=== PATIENT | female | born 1930 | race Caucasian/White ===

== ENCOUNTER → 2016-08-16 | Outpatient (CLI) | payer BC, MEDICARE ==
[2016-08-16 10:51] LABS: ALT 33 U/L (9-52); AST 23 U/L (14-36); Cholesterol 177 mg/dL (<200); Creatine Kinase 28 U/L (30-135); HDL Cholesterol 45 mg/dL (40-60); Triglycerides 311 mg/dL (<150)
== END | disposition home or self-care (01) ==
LOC: LABWHC1 10:11
PROVIDERS: ATTEND Internal Medicine Cardiovascular Disease
DX: E78.2 Mixed hyperlipidemia (principal)
CPT/HCPCS: 36415; 80061; 82550; 84450; 84460

== ENCOUNTER → 2017-02-21 | Outpatient (CLI) | payer MEDICARE ==
[2017-02-21 10:08] LABS: CH 28.2; CHCM 31.3; HCT 38.5 % (34.0-46.0); HDW 2.65; HGB 11.7 gm/dL (11.4-16.0); Hypochromasia Slight; MCH 27.4 pg (25.0-35.0); MCHC 30.3 g/dL (31.0-37.0); MCV 90.7 fL (80.0-100.0); RBC 4.25 m/uL (3.80-5.40); RDW 14.9 % (11.5-15.5)
[2017-02-21 10:31] LABS: Potassium 4.7 mmol/L (3.5-5.1)
== END | disposition home or self-care (01) ==
LOC: LABWHC1 09:24
PROVIDERS: ATTEND Internal Medicine Cardiovascular Disease
DX: E78.2 Mixed hyperlipidemia (principal)
CPT/HCPCS: 36415; 80051; 82565; 84443; 84520; 85027

== ENCOUNTER → 2018-09-25 | Outpatient (CLI) | payer MEDICARE ==
--- NOTE | 2018-09-25 12:44 | XR ---
Right foot HISTORY: Chronic gout 2 views of the right foot No comparisons There is arthropathy at the metatarsophalangeal joint of the first digit which some minimal marginal erosion, cystic change present within the distal first metatarsal. Alignment is maintained, joint spa missael reduced. Extensive arthropathy changes present at the tarsometatarsal joints of the second throug h fourth digits, lesser extent first digit with hypertrophic change, joint space loss, arthropathy al so noted at the intertarsal joint medially. Alignment is maintained. Bone mineralization overall is r educed. No fracture or dislocation. There is soft tissue swelling. Vascular calcifications are presen t. There is a plantar calcaneal spur. IMPRESSION: Findings compatible with patient's history of gout.
== END ==
LOC: RADXRMAIN 11:06
PROVIDERS: ATTEND Family Medicine
DX: M1A.9XX1 Chronic gout, unspecified, with tophus (tophi) (principal)

== ENCOUNTER → 2018-10-01 | Outpatient (CLI) | payer MEDICARE ==
--- NOTE | 2018-10-01 10:08 | US ---
Exam: Ultrasound venous Doppler duplex lower extremity bilateral, LOWER EXTREMITY VENOUS INSUFFICIENC Y TECHNIQUE: Duplex ultrasound examination of the bilateral lower extremities. History: 87-year-old female with right leg pain,Pt having bilateral leg pain, non-healing wound rig ht great toe SIDE PERFORMED: Bilateral FINDINGS: 1) Color flow is present and patency is documented in the following vessels. No DVT or SVT is noted . EIV Common Femoral Vein Deep Femoral Vein Femoral Vein Popliteal Vein Proximal Calf Veins Greater Saph Vein Upper Small Saph Vein 2) There is venous reflux noted at the following venous levels: No reflux noted bilaterally IMPRESSION: 1. No evidence for DVT within the bilateral lower extremities imaged from the groin to the upper calv es. 2. No venous reflux identified.
--- NOTE | 2018-10-03 12:12 | P.ARTDOP ---
Arterial Doppler LOWER EXTREMITY ARTERIAL DOPPLER: DATE OF SERVICE: 10/01/2018 Reason for study: Right great toe ulcer. Doppler waveforms: Multiphasic bilaterally throughout but blunted. Pulse volume recording: []. Pressure gradients: None. Ankle-brachial indices: Cannot occlude. Toe pressures: 137 on the right, 139 on the left Impression: Normal flow patterns bilaterally. Nonocclusive will ankles suggests calcific wall disease which is not hemodynamically significant..
== END | disposition home or self-care (01) ==
LOC: RADUSWWP 09:07
PROVIDERS: ATTEND Family Medicine
DX: M79.604 Pain in right leg (principal)
CPT/HCPCS: 93922; 93970

== ENCOUNTER → 2019-08-28 | Outpatient (CLI) | payer MEDICARE ==
[2019-08-28 17:32] LABS: Chol/HDL Ratio 3.51; LDL Cholesterol,Calculated 71.8 mg/dL (0.0-131.0); VLDL Calculation 51.2 mg/dL (5.00-40.00)
== END | disposition home or self-care (01) ==
LOC: LABWHC1 10:02
PROVIDERS: ATTEND Internal Medicine Cardiovascular Disease
DX: E78.2 Mixed hyperlipidemia (principal)
CPT/HCPCS: 36415; 80061; 84450; 84460

== ENCOUNTER → 2021-07-22 | Outpatient (CLI) | payer MEDICARE | END | disposition home or self-care (01) | LOC: LABWHC1 12:25 | PROVIDERS: ATTEND Family Medicine | DX: U07.1 COVID-19 (principal) | CPT/HCPCS: U0003; C9803; U0005 ==

== ENCOUNTER → 2021-10-12 | Outpatient (CLI) | payer MEDICARE ==
[2021-10-12 14:45] LABS: ALT 17 U/L (8-44); AST 28 U/L (13-35); Chol/HDL Ratio 2.76 Ratio; LDL Cholesterol,Calculated 76.3 mg/dL (0.0-131.0)
== END | disposition home or self-care (01) ==
LOC: LABWHC1 09:46
PROVIDERS: ATTEND Internal Medicine Cardiovascular Disease
DX: E78.2 Mixed hyperlipidemia (principal)
CPT/HCPCS: 36415; 80061; 84450; 84460

== ENCOUNTER 2021-10-18 20:01 | Inpatient (IN) | payer MEDICARE ==
[2021-10-18] MEDS ORDERED: SODIUM CHLORIDE 0.9% 1,000 ML IV ONE (20:42)
[2021-10-18 21:13] LABS: Albumin 3.1 g/dL (3.5-5.0); Calcium 9.6 mg/dL (8.4-10.2); Potassium 3.3 mmol/L (3.5-5.1); Total Protein 5.3 g/dL (6.3-8.2)
--- NOTE | 2021-10-18 21:27 | XR ---
EXAMINATION TYPE: XR chest 2V DATE OF EXAM: 10/18/2021 9:02 PM COMPARISON:Chest radiographs from 10/15/2015 TECHNIQUE: XR chest 2V Frontal and lateral views of the chest. CLINICAL INDICATION:Female, 89 years old with history of altered mental status; FINDINGS: Lungs/Pleura: There is no evidence of pleural effusion, focal consolidation, or pneumothorax. Pulmonary vascularity: Pulmonary vascular congestion. Heart/mediastinum: Cardiomediastinal silhouette is enlarged and stable. Musculoskeletal: No acute osseous pathology. IMPRESSION: Cardiomegaly and mild pulmonary vascular congestion. Correlate with BNP for congestive heart failure.
[2021-10-18 21:29] LABS: Partial Thromboplastin Time 23.4 sec (22.0-30.0)
--- NOTE | 2021-10-18 21:39 | CT ---
EXAMINATION TYPE: CT brain wo con CT DLP: 1126.4 mGycm, Automated exposure control for dose reduction was used. DATE OF EXAM: 10/18/2021 9:20 PM COMPARISON: None. CLINICAL INDICATION:Female, 89 years old with history of Altered mental status. TECHNIQUE: Brain: Multiple axial CT images of the brain were obtained without IV contrast. FINDINGS: Brain: Extra-axial spaces: No abnormal extra-axial fluid collections. Ventricular system: Dilatation in proportion to cerebral atrophy. Cerebral parenchyma: No acute intraparenchymal hemorrhage or mass effect. The ross-white junction is well differentiated. Scattered hypoattenuating areas are seen within the white matter. Cerebellum: Unremarkable. Mass effect: No evidence of midline shift. Intracranial vasculature: Atherosclerotic calcifications of the intracranial vessels. Soft tissues: Normal. Calvarium/osseous structures: No depressed skull fracture. Paranasal sinuses and mastoid air cells: Mild scattered paranasal sinus disease. Visualized orbits: Bilateral aphakia IMPRESSION: 1. No acute intracranial process. 2. Nonspecific white matter changes, likely secondary to chronic small vessel ischemic disease.
[2021-10-18 21:51] LABS: Lactic Acid, Venous 2.7 mmol/L (0.7-2.0)
[2021-10-18 21:56] LABS: HCT 38.5 % (34.0-46.0); HGB 12.2 gm/dL (11.4-16.0); Hypochromasia Slight; MCH 30.4 pg (25.0-35.0); MCHC 31.7 g/dL (31.0-37.0); MCV 95.7 fL (80.0-100.0); Mean Platelet Volume 8.8; Platelet Count 132 k/uL (150-450); RBC 4.02 m/uL (3.80-5.40); RDW 15.9 % (11.5-15.5); WBC 12.8 k/uL (3.8-10.6)
[2021-10-18 23:01] LABS: Appearance,Urine Turbid (Clear); Bacteria,Urine Occasional /hpf; Bilirubin,Urine Negative (Negative); Blood,Urine Large (Negative); Glucose,Urine (UA) Negative (Negative); Ketones,Urine Trace (Negative); Leukocyte Esterase,Urine Moderate (Negative); Nitrite,Urine Negative (Negative); PH, Urine 7.5 (5.0-8.0); Protein,Urine 3+ (Negative); RBC,Urine >182 /hpf (0-5); Specific Gravity,Urine 1.022 (1.001-1.035); Squamous Epithelial Cell,Urine 2 /hpf (0-4); Urobilinogen,Urine <2.0 mg/dL (<2.0); WBC,Urine 80 /hpf (0-5)
[2021-10-18 23:13] LABS: Amphetamine Screen,Urine Not Detected (NotDetected); Barbiturate Screen,Urine Not Detected (NotDetected); Benzodiazepines Screen,Urine Not Detected (NotDetected); Cocaine Screen,Urine Not Detected (NotDetected); Color,Urine Brown; Methadone Screen, Urine Not Detected (NotDetected); Opiate Screen,Urine Not Detected (NotDetected); Oxycodone Screen, Urine Not Detected (NotDetected); Phencyclidine Screen,Urine Not Detected (NotDetected); Tricyclic Antidepressant,Urine Not Detected (NotDetected); Urn Cannabinoid Scrn Not Detected (NotDetected)
[2021-10-18] MEDS ORDERED: SODIUM CHLORIDE 0.9% 1,000 ML IV STA (23:21)
[2021-10-18] MEDS ORDERED: CEFEPIME 2 GM in SODIUM CHLORIDE 0.9% 100 ML IVPB ONE (23:30)
[2021-10-18] MEDS ORDERED: NALOXONE 0.4 MG/ML 1 ML VIAL IV PRN (23:38)
[2021-10-18] MEDS ORDERED: ONDANSETRON 4 MG/2 ML VIAL IVP PRN (23:38)
[2021-10-18] MEDS ORDERED: POTASSIUM CHLORIDE ER 20 MEQ TAB.ER PO STA (23:50)
--- NOTE | 2021-10-18 23:50 | ED ---
General Adult HPI - General Chief complaint: Altered Mental Status Stated complaint: Weakness Time Seen by Provider: 10/18/21 20:15 Source: patient, EMS, RN notes reviewed, old records reviewed Mode of arrival: EMS - History of Present Illness Initial comments: Patient is a 89-year-old female with past medical history remarkable for atrial fibrillation on, CAD, cancer, dementia, hypertension, thyroid disorder who presents emergency Department complaining of fatigue, as well as concern for UTI. For the last one day, patient has had reduced oral intake, has been more tired, there is concern for possible UTI per patient's family members who present with the patient and assist with history taking. Patient provides limited history. Hs no acute complaints at this time. Patient has difficult time and waiting at home. She is chronically weak in bilateral lower extremitie s. She is a current baseline mental status, just slightly slower to responding to questions per family. She denies chest pain, shortness breath, abdominal pain. Presents for further evaluation. Per patient's family members, she is DO NOT RESUSCITATE DO NOT INTUBATE. Confirm the patient's daughters phone number, who is her power of logistics clerk and who is the primary otr truck driver for the patient. Patient does have an advanced directive. - Related Data Home Medications Medication Instructions Recorded Confirmed Furosemide [Lasix] 40 mg PO DAILY 03/01/14 10/18/21 Losartan Potassium [Cozaar] 100 mg PO DAILY 03/01/14 10/18/21 Pravastatin Sodium [Pravachol] 80 mg PO HS 03/01/14 10/18/21 Apixaban [Eliquis] 2.5 mg PO BID 09/20/18 10/18/21 Calcium Carbonate [Calcium] 1,200 mg PO DAILY 09/20/18 10/18/21 allopurinoL [Zyloprim] 100 mg PO HS 09/20/18 10/18/21 Acetaminophen [Tylenol Arthritis] 1,300 mg PO BID 10/18/21 10/18/21 Atenolol [Tenormin] 50 mg PO BID 10/18/21 10/18/21 Cholecalciferol [Vitamin D3 (25 50 mcg PO DAILY 10/18/21 10/18/21 Mcg = 1000 Iu)] Donepezil [Aricept] 10 mg PO HS 10/18/21 10/18/21 Fexofenadine HCl [Dionna Allergy] 180 mg PO DAILY 10/18/21 10/18/21 Levothyroxine Sodium [Synthroid] 175 mcg PO DAILY 10/18/21 10/18/21 Memantine [Namenda] 10 mg PO BID 10/18/21 10/18/21 Multivitamin [Multivitamins Adult 2 tab PO DAILY 10/18/21 10/18/21 Gummies] Allergies Allergy/AdvReac Type Severity Reaction Status Date / Time hydrocodone bitartrate Allergy Unknown Verified 10/18/21 21:34 [From Lortab] lisinopril Allergy Swelling Verified 10/18/21 21:34 sulfamethoxazole Allergy Unknown Verified 10/18/21 21:34 [From Septra] trimethoprim [From Septra] Allergy Unknown Verified 10/18/21 21:34 Review of Systems ROS Statement: Those systems with pertinent positive or pertinent negative responses have been documented in the HPI. Review of Systems: CONST: Denies fever EYES: Denies blurry vision ENT: Denies nasal congestion C/V: Denies Chest pain RESP: Denies shortness of breath GI: Denies abdominal pain : Denies dysuria SKIN: Denies rash. MSK: Denies joint pain. NEURO: Denies headache ROS Other: All systems not noted in ROS Statement are negative. Past Medical History Past Medical History: Atrial Fibrillation, Coronary Artery Disease (CAD), Cancer, Dementia, Hyperlipidemia, Hypertension, Osteoarthritis (OA), Thyroid Disorder, Vascular Disorder Additional Past Medical History / Comment(s): Hiatal hernia, degenerative disc and spinal stenosis, low back pain, tinnitits bilaterally on occasion, TANGIR[place] with new hearing aides, sinus problems, frequent urination, poor circulation, caricosities bilaterally, cervical cancer with hysterectomy, hypothryroidism. History of Any Multi-Drug Resistant Organisms: None Reported Past Surgical History: Appendectomy, Bowel Resection, Cholecystectomy, Hysterectomy Additional Past Surgical History / Comment(s): Numerous pain procedures for back pain, partial thryoidectomy, sinus surgery, L and R cataract removal with lens implants, possible incisional hernia repair, ventral hernia repair, D & C, colonoscopy. Past Anesthesia/Blood Transfusion Reactions: No Reported Reaction Additional Past Anesthesia/Blood Transfusion Reaction / Comment(s): Pt has never recieved blood. Past Psychological History: No Psychological Hx Reported Smoking Status: Never smoker Past Alcohol Use History: None Reported Past Drug Use History: None Reported - Past Family History Father Family Medical History: Coronary Artery Disease (CAD) Additional Family Medical History / Comment(s): Father of heart problem at age 85 yrs. Mother Family Medical History: Diabetes Mellitus Additional Family Medical History / Comment(s): Mother at age 83yrs. She had an amputation of her leg. General Exam - General Exam Comments Initial Comments: General: Appears in no acute distress. HEAD: Normal with no signs of head trauma. EYES: PERRLA, EOMI, conjunctiva normal, no discharge. ENT: Hearing grossly intact, normal oropharynx. Dry oropharynx. RESPIRATORY: Clear breath sounds bilaterally. No wheezes, rales, or rhonchi. C/V: Regular rate and rhythm. S1 and S2 auscultated, no edema, peripheral pulses 2+ and intact throughout ABD: Abd is soft, nontender, nondistended EXT: Normal range of motion, no obvious deformity SKIN: No rashes or lesions observed on exposed skin. NEURO: Alert and oriented 2-3, which is her baseline per family. NIH is 0. GCS 15. No acute focal sensory or strength deficits. Chronically weak in bilateral lower extremities. Course Vital Signs 10/18/21 20:04 Temperature 97.5 F L Pulse Rate 72 Respiratory 16 Rate Blood Pressure 132/60 O2 Sat by Pulse 98 Oximetry Medical Decision Making - Medical Decision Making Based on the patient's presentation physical exam, she presents for fatigue and concern for UTI. We will obtain a broad altered mental status workup for the patient. Family members are in agreement with this plan. CT brain as well as infectious labs including cardiac labs will be obtained. She'll be started on a 1 L fluid bolus. Vital signs are within normal limits and stable at this time. Family lives in agreement with this plan. She is DNR/DNI. EKG shows no signs of acute ischemia. Chest x-ray reveals no acute infectious process. Head CT shows no acute intracranial process. Laboratory studies are remarkable for mild leukocytosis of 12.8. Patient is a mild hypokalemia at 3.3 which is replenished. Patient has an AK I with creatinine of 1.67 and BUN of 31. Lactic acid is slightly elevated secondary to dehydration, to 2.7. Troponin is indeterminate at 0.029 which is likely secondary to her AK eye. Urinalysis is remarkable for a UTI, is distributed in appearance with 3+ protein, trace ketones, blood, leukocytes, as well as bacteria present. On reevaluation, vital signs remain within normal limits and unchanged. Discussed with the patient's family members as well as the patient that I believe she is having UTI and is dehydrated. Like to admitted to the hospital this time. There were no agreement this plan. Patient be started on cefepime based on her previous UTIs from a few Months ago. We'll continue IV fluids at this time. I spoke with the admitting physician, Dr. Denny, who accepted the patient. Patient was therefore admitted in stable condition for further management to observation telemetry. - Lab Data Result diagrams: 10/18/21 20:50 10/18/21 20:50 Lab Results 10/18/21 10/18/21 10/18/21 Range/Units 20:50 20:50 20:50 WBC 12.8 H (3.8-10.6) k/uL RBC 4.02 (3.80-5.40) m/uL Hgb 12.2 (11.4-16.0) gm/dL Hct 38.5 (34.0-46.0) % MCV 95.7 (80.0-100.0) fL MCH 30.4 (25.0-35.0) pg MCHC 31.7 (31.0-37.0) g/dL RDW 15.9 H (11.5-15.5) % Plt Count 132 L (150-450) k/uL MPV 8.8 Hypochromasia Slight PT 11.0 (9.0-12.0) sec INR 1.0 (<1.2) APTT 23.4 (22.0-30.0) sec Sodium 139 (137-145) mmol/L Potassium 3.3 L (3.5-5.1) mmol/L Chloride 102 (98-107) mmol/L Carbon Dioxide 30 (22-30) mmol/L Anion Gap 7 mmol/L BUN 31 H (7-17) mg/dL Creatinine 1.67 H (0.52-1.04) mg/dL Est GFR (CKD-EPI)AfAm 31 (>60 ml/min/1.73 sqM) Est GFR (CKD-EPI)NonAf 27 (>60 ml/min/1.73 sqM) Glucose 174 H (74-99) mg/dL Plasma Lactic Acid Karlo (0.7-2.0) mmol/L Calcium 9.6 (8.4-10.2) mg/dL Total Bilirubin 1.0 (0.2-1.3) mg/dL AST 52 H (14-36) U/L ALT 22 (4-34) U/L Alkaline Phosphatase 82 (38-126) U/L Ammonia (<30) umol/L Troponin I (0.000-0.034) ng/mL Total Protein 5.3 L (6.3-8.2) g/dL Albumin 3.1 L (3.5-5.0) g/dL Urine Color Urine Appearance (Clear) Urine pH (5.0-8.0) Ur Specific [place] (1.001-1.035) Urine Protein (Negative) Urine Glucose (UA) (Negative) Urine Ketones (Negative) Urine Blood (Negative) Urine Nitrite (Negative) Urine Bilirubin (Negative) Urine Urobilinogen (<2.0) mg/dL Ur Leukocyte Esterase (Negative) Urine RBC (0-5) /hpf Urine WBC (0-5) /hpf Urine WBC Clumps (None) /hpf Ur Squamous Epith Cells (0-4) /hpf Urine Bacteria (None) /hpf Urine Opiates Screen (NotDetected) Ur Oxycodone Screen (NotDetected) Urine Methadone Screen (NotDetected) Ur Propoxyphene Screen (NotDetected) Ur Barbiturates Screen (NotDetected) U Tricyclic Antidepress (NotDetected) Ur Phencyclidine Scrn (NotDetected) Ur Amphetamines Screen (NotDetected) U Methamphetamines Scrn (NotDetected) U Benzodiazepines Scrn (NotDetected) Urine Cocaine Screen (NotDetected) U Marijuana (THC) Screen (NotDetected) 10/18/21 10/18/21 10/18/21 Range/Units 20:50 21:27 21:54 WBC (3.8-10.6) k/uL RBC (3.80-5.40) m/uL Hgb (11.4-16.0) gm/dL Hct (34.0-46.0) % MCV (80.0-100.0) fL MCH (25.0-35.0) pg MCHC (31.0-37.0) g/dL RDW (11.5-15.5) % Plt Count (150-450) k/uL MPV Hypochromasia PT (9.0-12.0) sec INR (<1.2) APTT (22.0-30.0) sec Sodium (137-145) mmol/L Potassium (3.5-5.1) mmol/L Chloride (98-107) mmol/L Carbon Dioxide (22-30) mmol/L Anion Gap mmol/L BUN (7-17) mg/dL Creatinine (0.52-1.04) mg/dL Est GFR (CKD-EPI)AfAm (>60 ml/min/1.73 sqM) Est GFR (CKD-EPI)NonAf (>60 ml/min/1.73 sqM) Glucose (74-99) mg/dL Plasma Lactic Acid Karlo 2.7 H* (0.7-2.0) mmol/L Calcium (8.4-10.2) mg/dL Total Bilirubin (0.2-1.3) mg/dL AST (14-36) U/L ALT (4-34) U/L Alkaline Phosphatase (38-126) U/L Ammonia <9 (<30) umol/L Troponin I 0.029 (0.000-0.034) ng/mL Total Protein (6.3-8.2) g/dL Albumin (3.5-5.0) g/dL Urine Color Brown Urine Appearance Turbid H (Clear) Urine pH 7.5 (5.0-8.0) Ur Specific [place] 1.022 (1.001-1.035) Urine Protein 3+ H (Negative) Urine Glucose (UA) Negative (Negative) Urine Ketones Trace H (Negative) Urine Blood Large H (Negative) Urine Nitrite Negative (Negative) Urine Bilirubin Negative (Negative) Urine Urobilinogen <2.0 (<2.0) mg/dL Ur Leukocyte Esterase Moderate H (Negative) Urine RBC >182 H (0-5) /hpf Urine WBC 80 H (0-5) /hpf Urine WBC Clumps Many H (None) /hpf Ur Squamous Epith Cells 2 (0-4) /hpf Urine Bacteria Occasional H (None) /hpf Urine Opiates Screen Not Detected (NotDetected) Ur Oxycodone Screen Not Detected (NotDetected) Urine Methadone Screen Not Detected (NotDetected) Ur Propoxyphene Screen Not Detected (NotDetected) Ur Barbiturates Screen Not Detected (NotDetected) U Tricyclic Antidepress Not Detected (NotDetected) Ur Phencyclidine Scrn Not Detected (NotDetected) Ur Amphetamines Screen Not Detected (NotDetected) U Methamphetamines Scrn Not Detected (NotDetected) U Benzodiazepines Scrn Not Detected (NotDetected) Urine Cocaine Screen Not Detected (NotDetected) U Marijuana (THC) Screen Not Detected (NotDetected) - EKG Data -: EKG Interpreted by Me EKG Comments: 12-lead Electrocardiogram Interpretation Note EKG was reviewed and interpreted by myself. 12-lead ECG performed at 2016 is interpreted by me as revealing normal sinus rhythm at a rate of 77 beats per minute. [place] is normal. [place] interval is 229 ms, QRS durations 120 ms, QTc is 515 ms.. There were no ST or T wave abnormalities to suggest myocardial ischemia or injury. R-wave progression across the precordium was delayed.. By my interpretation this EKG is non-diagnostic for acute ischemia. Shows first- degree AV block. Prolonged QTc. Disposition Clinical Impression: Dehydration, UTI (urinary tract infection), Weakness, Hypokalemia, First degree AV block Disposition: ADMITTED IP TO THIS [facility] Condition: Stable Referrals: Mp Denny DO [Primary Care Provider] - 1-2 days
[2021-10-19 00:11] LABS: Band Neutrophils % 51 %; Lymphocytes # (M) 0.38 k/uL (1.0-4.8); Monocytes # (M) 0.13 k/uL (0-1.0); Neutrophils % (M) 46 %; Nucleated Red Blood Cells 0 /100 WBC (0-0); Total Cells Counted 200
[2021-10-19 00:13] LABS: Toxic Vacuolation Present
[2021-10-19 03:02] LABS: HGB 12.4 gm/dL (11.4-16.0); Hypochromasia Moderate; MCH 30.3 pg (25.0-35.0); MCV 97.7 fL (80.0-100.0); Mean Platelet Volume 8.5; Platelet Count 104 k/uL (150-450); RBC 4.09 m/uL (3.80-5.40); RDW 15.6 % (11.5-15.5); WBC 9.7 k/uL (3.8-10.6)
[2021-10-19 03:13] LABS: Albumin 3.5 g/dL (3.5-5.0); Calcium 9.7 mg/dL (8.4-10.2); Total Bilirubin 1.6 mg/dL (0.2-1.3); Total Protein 5.8 g/dL (6.3-8.2)
[2021-10-19 04:45] LABS: Band Neutrophils % 41 %; Lymphocytes # (M) 0.58 k/uL (1.0-4.8); Neutrophils % (M) 53 %; Nucleated Red Blood Cells 0 /100 WBC (0-0); Total Cells Counted 100
[2021-10-19 04:48] LABS: Toxic Vacuolation Present
[2021-10-19 04:49] LABS: Anisocytosis (M) Present
[2021-10-19] MEDS: LEVOTHYROXINE 88 MCG TAB PO SCH (06:24)
[2021-10-19] MEDS: MEMANTINE 10 MG TAB PO SCH ×2 (07:46→21:11)
[2021-10-19] MEDS: APIXABAN 2.5 MG TABLET PO SCH ×2 (07:46→21:11)
[2021-10-19] MEDS: LOSARTAN 50 MG TAB PO SCH (07:46)
[2021-10-19] MEDS: atenoloL 50 MG TAB PO SCH ×2 (07:47→21:11)
[2021-10-19] MEDS: LORATADINE 10 MG TAB PO SCH (07:47)
[2021-10-19] MEDS: CALCIUM CARBONATE 500 MG CHEWABLE PO SCH (07:47)
[2021-10-19] MEDS ORDERED: CEFEPIME 2 GM in SODIUM CHLORIDE 0.9% 100 ML IVPB SCH ×3 (08:00)
[2021-10-19] MEDS ORDERED: FUROSEMIDE 40 MG TAB PO SCH (09:00)
[2021-10-19] MEDS: CEFEPIME 1 GM in SODIUM CHLORIDE 0.9% 50 ML IVPB SCH (21:08)
[2021-10-19] MEDS: allopurinoL 100 MG TAB PO SCH (21:11)
[2021-10-19] MEDS: PRAVASTATIN SODIUM 80 MG TAB PO SCH (21:11)
[2021-10-20] MEDS: LEVOTHYROXINE 88 MCG TAB PO SCH (05:46)
[2021-10-20] MEDS: LOSARTAN 50 MG TAB PO SCH (08:42)
[2021-10-20] MEDS: CEFEPIME 1 GM in SODIUM CHLORIDE 0.9% 50 ML IVPB SCH ×2 (08:42→20:55)
[2021-10-20] MEDS: MEMANTINE 10 MG TAB PO SCH ×2 (08:42→20:56)
[2021-10-20] MEDS: APIXABAN 2.5 MG TABLET PO SCH ×2 (08:42→20:56)
[2021-10-20] MEDS: atenoloL 50 MG TAB PO SCH ×2 (08:42→20:56)
[2021-10-20] MEDS: LORATADINE 10 MG TAB PO SCH (08:42)
[2021-10-20] MEDS: CALCIUM CARBONATE 500 MG CHEWABLE PO SCH (08:42)
[2021-10-20] MEDS: FUROSEMIDE 40 MG TAB PO SCH ×2 (08:43→15:11)
[2021-10-20] MEDS: SODIUM CHLORIDE 0.9% 1,000 ML IV SCH (08:43)
--- NOTE | 2021-10-20 13:51 | P.PN ---
Progress Note - Text Progress Note Date: 10/20/21 At discharge patient will require a hospital bed secondary to dementia, obesity, and arthritis which requires frequent positioning of body not feasible with an ordinary bed. Also require head of bed to be elevated greater than 30 to alleviate pain and pressure. The impression and plan of care has been dictated as directed. : I performed a history and examination of this patient, discussed the same with the dictator. I agree with the dictator's note ,documented as a scribe. Any additional findings or plans will be noted.
[2021-10-20] MEDS: PANTOPRAZOLE 40 MG/10 ML VIAL IVP SCH (15:11)
[2021-10-20] MEDS: PRAVASTATIN SODIUM 80 MG TAB PO SCH (20:56)
[2021-10-20] MEDS: allopurinoL 100 MG TAB PO SCH (20:56)
--- NOTE | 2021-10-20 21:36 | P.HPIM ---
History of Present Illness H&P Date: 10/19/21 Patient is a 89-year-old female with past medical history remarkable for atrial fibrillation on, CAD, cancer, dementia, hypertension, thyroid disorder who was admitted from emergency Department complaining of fatigue, as well as concern for UTI. For the last one day, patient has had reduced oral intake, has been more tired, there is concern for possible UTI per patient's family members who present with the patient and assist with history taking. Patient provides limited history. Hs no acute complaints at this time. Patient has difficult time and waiting at home. She is chronically weak in bilateral lower extremities. She is a current baseline mental status, just slightly slower to responding to questions per family. She denies chest pain, shortness breath, abdominal pain. Presents for further evaluation. Per patient's family members, she is DO NOT RESUSCITATE DO NOT INTUBATE. Confirm the patient's daughters phone number, who is her power of disability attorney and who is the primary industrial x ray operator for the patient. Patient does have an advanced directive. Review of Systems Patient is a poor historian review of systems was not obtained by her. Past Medical History Past Medical History: Atrial Fibrillation, Coronary Artery Disease (CAD), Cancer, Dementia, Hearing Disorder / Deafness, Hyperlipidemia, Hypertension, Osteoarthritis (OA), Thyroid Disorder, Vascular Disorder Additional Past Medical History / Comment(s): Hiatal hernia, diverticulitis with bowel resection, degenerative disc and spinal stenosis, low back pain, gouty arthritis, tinnitits bilaterally on occasion, [place] with new hearing aides, sinus problems, frequent urination, poor circulation, varicosities bilaterally, cervical cancer with hysterectomy per past medical record but [facility] does not recall this, hypothryroidism. History of Any Multi-Drug Resistant Organisms: None Reported Past Surgical History: Appendectomy, Bowel Resection, Cholecystectomy, Hysterectomy Additional Past Surgical History / Comment(s): Numerous pain procedures for back pain, partial thryoidectomy, sinus surgery, L and R cataract removal with lens implants, possible incisional hernia repair, ventral hernia repair, D & C, colonoscopy, R great toe I&D d/t ulcer.. Past Anesthesia/Blood Transfusion Reactions: No Reported Reaction Additional Past Anesthesia/Blood Transfusion Reaction / Comment(s): Pt has never recieved blood. Smoking Status: Never smoker - Past Family History Father Family Medical History: Coronary Artery Disease (CAD) Additional Family Medical History / Comment(s): Father of heart problem at age 85 yrs. Mother Family Medical History: Diabetes Mellitus Additional Family Medical History / Comment(s): Mother at age 83yrs. She had an amputation of her leg. Medications and Allergies Home Medications Medication Instructions Recorded Confirmed Type RX: Furosemide [Lasix] 40 mg PO DAILY 03/01/14 10/18/21 History RX: Losartan Potassium [Cozaar] 100 mg PO DAILY 03/01/14 10/18/21 History RX: Pravastatin Sodium [Pravachol] 80 mg PO HS 03/01/14 10/18/21 History Apixaban [Eliquis] 2.5 mg PO BID 09/20/18 10/18/21 History Calcium Carbonate [Calcium] 1,200 mg PO DAILY 09/20/18 10/18/21 History allopurinoL [Zyloprim] 100 mg PO HS 09/20/18 10/18/21 History Acetaminophen [Tylenol Arthritis] 1,300 mg PO BID 10/18/21 10/18/21 History Atenolol [Tenormin] 50 mg PO BID 10/18/21 10/18/21 History Cholecalciferol [Vitamin D3 (25 50 mcg PO DAILY 10/18/21 10/18/21 History Mcg = 1000 Iu)] Donepezil [Aricept] 10 mg PO HS 10/18/21 10/18/21 History Fexofenadine HCl [Dionna Allergy] 180 mg PO DAILY 10/18/21 10/18/21 History Levothyroxine Sodium [Synthroid] 175 mcg PO DAILY 10/18/21 10/18/21 History Memantine [Namenda] 10 mg PO BID 10/18/21 10/18/21 History Multivitamin [Multivitamins Adult 2 tab PO DAILY 10/18/21 10/18/21 History Gummies] Allergies Allergy/AdvReac Type Severity Reaction Status Date / Time hydrocodone bitartrate Allergy Unknown Verified 10/18/21 21:34 [From Lortab] lisinopril Allergy Swelling Verified 10/18/21 21:34 sulfamethoxazole Allergy Unknown Verified 10/18/21 21:34 [From Septra] trimethoprim [From Septra] Allergy Unknown Verified 10/18/21 21:34 Physical Exam Osteopathic Statement: *. No significant issues noted on an osteopathic structural exam other than those noted in the History and Physical/Consult. Vitals: Vital Signs Temp Pulse Resp BP Pulse Ox 10/20/21 20:13 98.5 F 57 L 22 138/76 92 L 10/20/21 14:00 98 F 56 L 20 144/78 93 L 10/20/21 06:48 97.9 F 59 L 20 104/55 94 L 10/20/21 03:02 98.5 F 61 22 111/64 93 L Intake and Output 10/20/21 10/20/21 10/20/21 06:59 14:59 22:59 Intake Total 240 120 Output Total 50 Balance -50 240 120 Intake: Oral 240 120 Output: Urine 50 Other: Voiding Method External Catheter # Voids 1 GENERAL: This is a 89-year-old in no apparent distress at the time of examination. Pleasant and cooperative. HEENT: Head is atraumatic, normocephalic. Pupils are equal, round, and reactive to light. Sclerae anicteric. Conjunctivae are clear. Mucus membranes of the mouth are dry. Neck is supple. RESPIRATORY: Clear to auscultation. No wheezes, rales, or rhonchi. No use of accessory muscles. CARDIOVASCULAR: Regular rate and rhythm. GASTROINTESTINAL: No distention noted. Abdomen soft and round. Normal active bowel sounds auscultated x 4 quadrants. No pain or tenderness noted upon palpation. INTEGUMENTARY: No cyanosis. No jaundice. No rashes noted. No cellulitis noted. EXTREMITIES: 2+ peripheral pulses. evidence of edema. No calf tenderness noted. NEUROLOGIC: Cranial nerves II-XII intact. PSYCHIATRIC: Awake, alert, and oriented X 1. Appropriate affect. judgement and insight not intact Results CBC & Chem 7: 10/19/21 02:44 10/19/21 02:44 Labs: Microbiology - Last 24 Hours (Table) 10/18/21 21:54 Urine Culture - Preliminary Urine,Catheterized Gram Neg Bacilli 10/18/21 21:25 Blood Culture Gram Stain - Preliminary Blood Blood Culture - Preliminary Gram Neg Bacilli 10/18/21 21:10 Blood Culture Gram Stain - Preliminary Blood Blood Culture - Preliminary Enterobacter cloacae Thrombosis Risk Factor Assmnt - Choose All That Apply Any of the Below Risk Factors Present?: Yes Other Risk Factors: Yes Each Risk Factor Represents 2 Points: Malignancy Each Risk Factor Represents 3 Points: Age 75 years or older Other congenital or acquired thrombophilia - If yes, enter type in comment: No Thrombosis Risk Factor Assessment Total Risk Factor Score: 5 Thrombosis Risk Factor Assessment Level: High Risk Assessment and Plan (1) Acute sepsis Current Visit: Yes Status: Acute Code(s): A41.9 - SEPSIS, UNSPECIFIED ORGANISM SNOMED Code(s): 97127659 (2) Dehydration Current Visit: Yes Status: Acute Code(s): E86.0 - DEHYDRATION SNOMED Code(s): 02850980 (3) Positive blood culture Current Visit: Yes Status: Acute Code(s): R78.81 - BACTEREMIA SNOMED Code(s): 736019295 (4) UTI (urinary tract infection) Current Visit: Yes Status: Acute Code(s): N39.0 - URINARY TRACT INFECTION, SITE NOT SPECIFIED SNOMED Code(s): 56196935 (5) Cardiomyopathy Current Visit: No Status: Acute Code(s): I42.9 - CARDIOMYOPATHY, UNSPECIFIED SNOMED Code(s): 03459111 (6) Dementia Current Visit: Yes Status: Acute Code(s): F03.90 - UNSPECIFIED DEMENTIA WITHOUT BEHAVIORAL DISTURBANCE SNOMED Code(s): 41695021 Plan: Patient will be admitted today with further IV hydration and IV antibiotics and monitoring. Time with Patient: Greater than 30
--- NOTE | 2021-10-20 21:50 | P.PN ---
Subjective Progress Note Date: 10/20/21 Patient seen today somewhat better a little bit more short of breath per family member at bedside. She is slightly backed up with fluids and will give her dose of Lasix today... her blood culture came back positive for Enterobacter which is currently under care with IV antibiotics. She denies any additional complaints Objective - Vital Signs Vital signs: Vital Signs Temp 98.5 F 10/20/21 20:13 Pulse 57 L 10/20/21 20:13 Resp 22 10/20/21 20:13 BP 138/76 10/20/21 20:13 Pulse Ox 92 L 10/20/21 20:13 Intake & Output 10/20/21 10/20/21 10/21/21 06:59 18:59 06:59 Intake Total 360 Output Total 50 Balance -50 360 Intake: Oral 360 Output: Urine 50 Other: Voiding Method External Catheter External Catheter # Voids 1 1 - Exam GENERAL: This is a 89-year-old in no apparent distress at the time of examination. Pleasant and cooperative. HEENT: Head is atraumatic, normocephalic. Pupils are equal, round, and reactive to light. Sclerae anicteric. Conjunctivae are clear. Mucus membranes of the mouth are dry. Neck is supple. RESPIRATORY: Clear to auscultation. No wheezes, rales, or rhonchi. No use of accessory muscles. CARDIOVASCULAR: Regular rate and rhythm. GASTROINTESTINAL: No distention noted. Abdomen soft and round. Normal active bowel sounds auscultated x 4 quadrants. No pain or tenderness noted upon palpation. INTEGUMENTARY: No cyanosis. No jaundice. No rashes noted. No cellulitis noted. EXTREMITIES: 2+ peripheral pulses. evidence of edema. No calf tenderness noted. NEUROLOGIC: Cranial nerves II-XII intact. PSYCHIATRIC: Awake, alert, and oriented X 1. Appropriate affect. judgement and insight not intact - Labs CBC & Chem 7: 10/19/21 02:44 10/19/21 02:44 Labs: Microbiology - Last 24 Hours (Table) 10/18/21 21:54 Urine Culture - Preliminary Urine,Catheterized Gram Neg Bacilli 10/18/21 21:25 Blood Culture Gram Stain - Preliminary Blood Blood Culture - Preliminary Gram Neg Bacilli 10/18/21 21:10 Blood Culture Gram Stain - Preliminary Blood Blood Culture - Preliminary Enterobacter cloacae Assessment and Plan (1) Acute sepsis Current Visit: Yes Status: Acute Code(s): A41.9 - SEPSIS, UNSPECIFIED ORGANISM SNOMED Code(s): 70107726 (2) Dehydration Current Visit: Yes Status: Acute Code(s): E86.0 - DEHYDRATION SNOMED Co de(s): 54867933 (3) Positive blood culture Current Visit: Yes Status: Acute Code(s): R78.81 - BACTEREMIA SNOMED Code(s): 150207426 (4) UTI (urinary tract infection) Current Visit: Yes Status: Acute Code(s): N39.0 - URINARY TRACT INFECTION, SITE NOT SPECIFIED SNOMED Code(s): 03940736 (5) Cardiomyopathy Current Visit: No Status: Acute Code(s): I42.9 - CARDIOMYOPATHY, UNSPECIFIED SNOMED Code(s): 91857695 (6) Dementia Current Visit: Yes Status: Acute Code(s): F03.90 - UNSPECIFIED DEMENTIA WITHOUT BEHAVIORAL DISTURBANCE SNOMED Code(s): 98767331 Plan: Continue antibiotics for uti with bacteremia. will continue to monitor.
--- NOTE | 2021-10-20 23:45 | P.CONS ---
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 colon patient also have a history of recurrent urinary tract infection patient was brought into the hospital 2 days ago for evaluation of decreased oral intake and extreme weakness and unable to get up or stand, no clear history of any fever or chills at home and no fever Recorded during this hospital stay patient did have iron of 12.8 with a left shift BUN and creatinine mildly elevated patient did have a positive UA with moderate leukocyte esterase more than 1-2 WBC urine drug screen was negative patient blood in urine showing a gram-negative bacilli patient currently being treated with cefepime infectious disease was consulted for further management of antibiotic therapy most information has been obtained from review the chart and talking to the daughter who is the power of insurance attorney as patient current let hargic" avoid any history Past Medical History Past Medical History: Atrial Fibrillation, Coronary Artery Disease (CAD), Cancer, Dementia, Hearing Disorder / Deafness, Hyperlipidemia, Hypertension, Osteoarthritis (OA), Thyroid Disorder, Vascular Disorder Additional Past Medical History / Comment(s): Hiatal hernia, diverticulitis with bowel resection, degenerative disc and spinal stenosis, low back pain, gouty arthritis, tinnitits bilaterally on occasion, [place] with new hearing aides, sinus problems, frequent urination, poor circulation, varicosities bilaterally, cervical cancer with hysterectomy per past medical record but [facility] does not recall this, hypothryroidism. History of Any Multi-Drug Resistant Organisms: None Reported Past Surgical History: Appendectomy, Bowel Resection, Cholecystectomy, Hysterectomy Additional Past Surgical History / Comment(s): Numerous pain procedures for back pain, partial thryoidectomy, sinus surgery, L and R cataract removal with lens implants, possible incisional hernia repair, ventral hernia repair, D & C, colonoscopy, R great toe I&D d/t ulcer.. Past Anesthesia/Blood Transfusion Reactions: No Reported Reaction Additional Past Anesthesia/Blood Transfusion Reaction / Comm: Pt has never recieved blood. Smoking Status: Never smoker - Past Family History Father Family Medical History: Coronary Artery Disease (CAD) Additional Family Medical History / Comment(s): Father of heart problem at age 85 yrs. Mother Family Medical History: Diabetes Mellitus Additional Family Medical History / Comment(s): Mother at age 83yrs. She had an amputation of her leg. Medications and Allergies Home Medications Medication Instructions Recorded Confirmed Type Furosemide [Lasix] 40 mg PO DAILY 03/01/14 10/18/21 History Losartan Potassium [Cozaar] 100 mg PO DAILY 03/01/14 10/18/21 History Pravastatin Sodium [Pravachol] 80 mg PO HS 03/01/14 10/18/21 History Apixaban [Eliquis] 2.5 mg PO BID 09/20/18 10/18/21 History Calcium Carbonate [Calcium] 1,200 mg PO DAILY 09/20/18 10/18/21 History allopurinoL [Zyloprim] 100 mg PO HS 09/20/18 10/18/21 History Acetaminophen [Tylenol Arthritis] 1,300 mg PO BID 10/18/21 10/18/21 History Atenolol [Tenormin] 50 mg PO BID 10/18/21 10/18/21 History Cholecalciferol [Vitamin D3 (25 50 mcg PO DAILY 10/18/21 10/18/21 History Mcg = 1000 Iu)] Donepezil [Aricept] 10 mg PO HS 10/18/21 10/18/21 History Fexofenadine HCl [Dionna Allergy] 180 mg PO DAILY 10/18/21 10/18/21 History Levothyroxine Sodium [Synthroid] 175 mcg PO DAILY 10/18/21 10/18/21 History Memantine [Namenda] 10 mg PO BID 10/18/21 10/18/21 History Multivitamin [Multivitamins Adult 2 tab PO DAILY 10/18/21 10/18/21 History Gummies] Allergies Allergy/AdvReac Type Severity Reaction Status Date / Time hydrocodone bitartrate Allergy Unknown Verified 10/18/21 21:34 [From Lortab] lisinopril Allergy Swelling Verified 10/18/21 21:34 sulfamethoxazole Allergy Unknown Verified 10/18/21 21:34 [From Septra] trimethoprim [From Septra] Allergy Unknown Verified 10/18/21 21:34 Physical Exam Vitals: Vital Signs Temp Pulse Pulse Resp BP BP Pulse Ox 10/20/21 06:48 97.9 F 59 L 20 104/55 94 L 04/06/22 03:02 98.5 F 61 22 111/64 93 L 10/19/21 20:03 98.3 F 68 21 129/63 94 L 10/19/21 16:39 97.1 F L 58 L 12 129/59 93 L Intake and Output 10/19/21 10/20/21 10/20/21 22:59 06:59 14:59 Intake Total 240 Output Total 50 Balance -50 240 Intake: Oral 240 Output: Urine 50 Other: Voiding Method External Catheter External Catheter # Voids 1 Results CBC & Chem 7: 10/19/21 02:44 10/19/21 02:44 Labs: Microbiology - Last 24 Hours (Table) 10/18/21 21:25 Blood Culture Gram Stain - Preliminary Blood Blood Culture - Preliminary Gram Neg Bacilli 10/18/21 21:10 Blood Culture Gram Stain - Preliminary Blood Blood Culture - Preliminary Enterobacter cloacae 10/18/21 21:25 Blood Culture - Final Blood 10/18/21 21:10 Blood Culture - Final Blood Assessment and Plan (1) Positive blood culture Current Visit: Yes Status: Acute Code(s): R78.81 - BACTEREMIA SNOMED Code(s): 231859134 (2) UTI (urinary tract infection) Current Visit: Yes Status: Acute Code(s): N39.0 - URINARY TRACT INFECTION, SITE NOT SPECIFIED SNOMED Code(s): 34450299 Plan: 1patient presented to hospital with extreme weakness no energy in this patient did have a significantly positive UA elevated white count likely from a symptomatic urinary tract infection from enteric gram-negative pathogen. 2Enterobacter bacteremia likely secondary to urinary source. 3renal insufficiency and high risk of nephrotoxicity. 4we will obtain ultrasound of the kidney bladder measured evidence of any structural normality. 5patient to continue cefepime dose has been adjusted to the kidney function 1 g every 12hr. Multiple family members at the bedside multiple questions and concerns were answered in layman term We will follow on clinical condition and cultures to further adjust medication if needed Thank you for this consultation will follow this patient along with you Time with Patient: Greater than 30
[2021-10-21] MEDS: LEVOTHYROXINE 88 MCG TAB PO SCH (05:29)
[2021-10-21] MEDS: SODIUM CHLORIDE 0.9% 1,000 ML IV SCH ×2 (08:22→17:59)
[2021-10-21] MEDS: atenoloL 50 MG TAB PO SCH ×2 (08:22→19:58)
[2021-10-21] MEDS: APIXABAN 2.5 MG TABLET PO SCH ×2 (08:22→19:58)
[2021-10-21] MEDS: FUROSEMIDE 40 MG TAB PO SCH (08:22)
[2021-10-21] MEDS: CEFEPIME 1 GM in SODIUM CHLORIDE 0.9% 50 ML IVPB SCH ×2 (08:23→19:57)
[2021-10-21] MEDS: LOSARTAN 50 MG TAB PO SCH (08:23)
[2021-10-21] MEDS: MEMANTINE 10 MG TAB PO SCH ×2 (08:23→19:58)
[2021-10-21] MEDS: LORATADINE 10 MG TAB PO SCH (08:23)
[2021-10-21] MEDS: CALCIUM CARBONATE 500 MG CHEWABLE PO SCH ×2 (08:23→08:24)
[2021-10-21] MEDS: PANTOPRAZOLE 40 MG/10 ML VIAL IVP SCH (08:23)
--- NOTE | 2021-10-21 08:30 | US ---
EXAMINATION TYPE: US kidneys/renal and bladder DATE OF EXAM: 10/21/2021 COMPARISON: CLINICAL HISTORY: uti and bacteremia. Hx extrarenal pelvis per prior imaging. EXAM MEASUREMENTS: Right Kidney: 11.2 x 4.7 x 5.2 cm Left Kidney: 10.0 x 4.8 x 5.9 cm Very limited due to patient body habitus Right Kidney: Medial anechoic lesion at hilum - 3.5 x 3.2 cm Left Kidney: Very limited visualization. Anterior cyst = 8.7 x 5.9 x 5.2 cm. Lesion at medial hilum = 3.1 x 3.7 cm. Bladder: limited visualization, anechoic Bilateral Jets not seen IMPRESSION: Bilateral hypoechoic renal lesions most likely related to parapelvic cysts versus extrarenal pelvis o r mild hydronephrosis. Correlation with CT scan is recommended given limitation of exam.
[2021-10-21 09:06] LABS: HCT 34.8 % (37.2-46.3); HGB 10.6 g/dL (12.0-15.0); MCH 29.4 pg (27.0-32.0); MCHC 30.5 g/dL (32.0-37.0); MCV 96.7 fL (80.0-97.0); NRBC Per 100 WBC 0 /100 WBCS (0.0-0.0); Platelet Count 116 X 10*3/uL (140-440); RDW 16.8 % (11.5-14.5); WBC 12.07 X 10*3/uL (4.50-10.00)
[2021-10-21 10:04] LABS: African American GFR (CKD) 17.5 (60.0-200.0); Anion Gap 11.8 mmol/L (10.00-18.00); BUN/Creat Ratio 20.89 Ratio (12.00-20.00); Blood Urea Nitrogen 56.4 mg/dL (9.0-27.0); Calcium 8.9 mg/dL (8.7-10.3); Carbon Dioxide 23.2 mmol/L (20.0-27.5); Non-African American GFR(CKD) 15.1 (60.0-200.0); Potassium 4.5 mmol/L (3.5-5.5)
--- NOTE | 2021-10-21 15:27 | P.PN ---
Subjective Progress Note Date: 10/21/21 This is an 89-year-old female admitted with sepsis, Enterobacter bacteremia, acute UTI, acute renal failure, decreased oral intake, increasing generalized weakness and multiple other medical issues. Maintained on cefepime as per ID. Afebrile, labs pending. Renal ultrasound completed, results pending. Received additional Lasix during the night. Consuming 75 to 50% of diet. Denies nausea or vomiting. Maintaining O2 sats in the 90s on room air. Denies chest pain, palpitations or shortness of breath. Objective - Vital Signs Vital signs: Vital Signs Temp 98.4 F 10/21/21 14:00 Pulse 59 L 10/21/21 14:00 Resp 15 10/21/21 14:00 BP 158/79 10/21/21 14:00 Pulse Ox 90 L 10/21/21 14:00 Intake & Output 10/20/21 10/21/21 10/21/21 18:59 06:59 18:59 Intake Total 360 236 Output Total 600 Balance 360 -600 236 Intake: Oral 360 236 Output: Urine 600 Other: Voiding Method External Catheter External Catheter External Catheter # Voids 1 - Exam - Exam GENERAL: Sitting up in bed, no acute distress. HEENT: Head is atraumatic, normocephalic. Pupils are equal, round, and reactive to light. Sclerae anicteric. Conjunctivae are clear. mmm. Neck is supple, no JVD. RESPIRATORY: Clear to auscultation. No wheezes, rales, or rhonchi. No use of accessory muscles. CARDIOVASCULAR: Regular rate and rhythm. GASTROINTESTINAL: No distention noted. Abdomen soft and round. Normal active bowel sounds auscultated x 4 quadrants. No pain or tenderness noted upon palpation. INTEGUMENTARY: Warm and dry, No rashes noted. EXTREMITIES: 2+ peripheral pulses. evidence of edema. No calf tenderness noted. NEUROLOGIC: Cranial nerves II-XII intact. PSYCHIATRIC: Awake, alert, and oriented X 1. Appropriate affect. judgement and insight not intact Microbiology 10/18/21 21:54 Urine,Catheterized Urine Culture - Final Enterobacter cloacae 10/18/21 21:25 Blood Blood Culture Gram Stain - Final 10/18/21 21:25 Blood Blood Culture - Final Enterobacter cloacae 10/18/21 21:10 Blood Blood Culture Gram Stain - Final 10/18/21 21:10 Blood Blood Culture - Final Enterobacter cloacae 10/18/21 21:25 Blood Blood Culture - Final 10/18/21 21:10 Blood Blood Culture - Final - Labs CBC & Chem 7: 10/21/21 05:11 10/21/21 05:11 Labs: Abnormal Lab Results - Last 24 Hours (Table) 10/21/21 10/21/21 Range/Units 05:11 05:11 WBC 12.07 H (4.50-10.00) X 10*3/uL RBC 3.60 L (4.10-5.20) X 10*6/uL Hgb 10.6 L (12.0-15.0) g/dL Hct 34.8 L (37.2-46.3) % MCHC 30.5 L (32.0-37.0) g/dL RDW 16.8 H (11.5-14.5) % Plt Count 116 L (140-440) X 10*3/uL MPV 13.0 H (9.5-12.2) fL BUN 56.4 H (9.0-27.0) mg/dL Creatinine 2.7 H (0.6-1.5) mg/dL Est GFR (CKD-EPI)AfAm 17.5 L (60.0-200.0) Est GFR (CKD-EPI)NonAf 15.1 L (60.0-200.0) BUN/Creatinine Ratio 20.89 H (12.00-20.00) Ratio Microbiology - Last 24 Hours (Table) 10/18/21 21:54 Urine Culture - Final Urine,Catheterized Enterobacter cloacae 10/18/21 21:25 Blood Culture Gram Stain - Final Blood Blood Culture - Final Enterobacter cloacae 10/18/21 21:10 Blood Culture Gram Stain - Final Blood Blood Culture - Final Enterobacter cloacae Assessment and Plan Assessment: (1) Acute sepsis Current Visit: Yes Status: Acute Code(s): A41.9 - SEPSIS, UNSPECIFIED ORGANISM SNOMED Code(s): 51541930 (2) Dehydration Current Visit: Yes Status: Acute Code(s): E86.0 - DEHYDRATION SNOMED Code (s): 88894435 (3) Positive blood culture, Enterobacter bacteremia suspect secondary to urinary source. Current Visit: Yes Status: Acute Code(s): R78.81 - BACTEREMIA SNOMED Code(s): 635558158 (4) UTI (urinary tract infection) Current Visit: Yes Status: Acute Code(s): N39.0 - URINARY TRACT INFECTION, SITE NOT SPECIFIED SNOMED Code(s): 98869059 (5) Cardiomyopathy Current Visit: No Status: Acute Code(s): I42.9 - CARDIOMYOPATHY, UNSPECIFIED SNOMED Code(s): 04094253 (6) Dementia Current Visit: Yes Status: Acute Code(s): F03.90 - UNSPECIFIED DEMENTIA WITHOUT BEHAVIORAL DISTURBANCE SNOMED Code(s): 40242449 (7) acute renal failure Plan: Continue on current medication regime ,monitoring and symptomatic treatment. Labs returned ,reporting worsening renal function. We'll hold Lasix, gentle IV fluid hydration ordered, obtain echo for LV function and consult nephrology. Antibiotics as per ID. Frequent positioning. Family at bedside, updated, questions and concerns addressed. Prognosis guarded given multiple complex medical issues. The impression and plan of care has been dictated as directed. : I performed a history and examination of this patient, discussed the same with the dictator. I agree with the dictator's note ,documented as a scribe. Any additional findings or plans will be noted.
[2021-10-21] MEDS: PRAVASTATIN SODIUM 80 MG TAB PO SCH (19:58)
[2021-10-21] MEDS: allopurinoL 100 MG TAB PO SCH (19:58)
--- NOTE | 2021-10-21 23:53 | P.PN ---
Subjective Progress Note Date: 10/21/21 Principal diagnosis: Enterobacter UTI and bacteremia Patient is 89-year-old female with a past medical history significant for recurrent UTI presented to the hospital with extreme weakness concerning for UTI in this patient who did have a positive blood and urine culture with Enterobacter. On today's evaluation that is 10/21/2021, the patient is afebrile the patient is more awake and alert today and is feeling slightly better denies any chest pain shortness of breath or cough no nausea no vomiting no abdominal pain no diarrhea Objective - Vital Signs Vital signs: Vital Signs Temp 97.9 F 10/21/21 07:46 Pulse 50 L 10/21/21 07:46 Resp 15 10/21/21 07:46 BP 115/47 10/21/21 07:46 Pulse Ox 90 L 10/21/21 07:46 Intake & Output 10/20/21 10/21/21 10/21/21 18:59 06:59 18:59 Intake Total 360 118 Output Total 600 Balance 360 -600 118 Intake: Oral 360 118 Output: Urine 600 Other: Voiding Method External Catheter External Catheter External Catheter # Voids 1 - Exam GENERAL DESCRIPTION: An elderly female lying in bed in no distress RESPIRATORY SYSTEM: Unlabored breathing , decreased breath sounds at bases HEART: S1 S2 regular rate and rhythm , ABDOMEN: Soft , no tenderness EXTREMITIES: No edema feet - Labs CBC & Chem 7: 10/21/21 05:11 10/21/21 05:11 Labs: Abnormal Lab Results - Last 24 Hours (Table) 10/21/21 10/21/21 Range/Units 05:11 05:11 WBC 12.07 H (4.50-10.00) X 10*3/uL RBC 3.60 L (4.10-5.20) X 10*6/uL Hgb 10.6 L (12.0-15.0) g/dL Hct 34.8 L (37.2-46.3) % MCHC 30.5 L (32.0-37.0) g/dL RDW 16.8 H (11.5-14.5) % Plt Count 116 L (140-440) X 10*3/uL MPV 13.0 H (9.5-12.2) fL BUN 56.4 H (9.0-27.0) mg/dL Creatinine 2.7 H (0.6-1.5) mg/dL Est GFR (CKD-EPI)AfAm 17.5 L (60.0-200.0) Est GFR (CKD-EPI)NonAf 15.1 L (60.0-200.0) BUN/Creatinine Ratio 20.89 H (12.00-20.00) Ratio Microbiology - Last 24 Hours (Table) 10/18/21 21:54 Urine Culture - Final Urine,Catheterized Enterobacter cloacae 10/18/21 21:25 Blood Culture Gram Stain - Final Blood Blood Culture - Final Enterobacter cloacae 10/18/21 21:10 Blood Culture Gram Stain - Final Blood Blood Culture - Final Enterobacter cloacae Assessment and Plan (1) Positive blood culture Current Visit: Yes Status: Acute Code(s): R78.81 - BACTEREMIA SNOMED Code(s): 747358880 (2) UTI (urinary tract infection) Current Visit: Yes Status: Acute Code(s): N39.0 - URINARY TRACT INFECTION, SITE NOT SPECIFIED SNOMED Code(s): 65377540 Plan: 1patient presented to hospital with extreme weakness no energy in this patient did have a significantly positive UA elevated white count likely from a symptomatic urinary tract infection from enteric gram-negative pathogen. 2Enterobacter bacteremia likely secondary to urinary source. 3 ultrasound of the kidney bladder did not show any structural normality. 4patient to continue cefepime dose has been adjusted to the kidney function 1 g every 12hr. Slight worsening of the kidney function could be related to prerenal azotemia as patient also have elevated BUN as well. And may benefit from IV fluid discuss with nurse practitioner for admitting team Time with Patient: Less than 30
[2021-10-22] MEDS: LEVOTHYROXINE 88 MCG TAB PO SCH (05:32)
[2021-10-22] MEDS: PANTOPRAZOLE 40 MG TABLET PO SCH (09:04)
[2021-10-22] MEDS: LORATADINE 10 MG TAB PO SCH (09:05)
[2021-10-22] MEDS: CEFEPIME 1 GM in SODIUM CHLORIDE 0.9% 50 ML IVPB SCH ×2 (09:05→19:35)
[2021-10-22] MEDS: MEMANTINE 10 MG TAB PO SCH ×2 (09:05→19:34)
[2021-10-22] MEDS: CALCIUM CARBONATE 500 MG CHEWABLE PO SCH (09:08)
[2021-10-22] MEDS: APIXABAN 2.5 MG TABLET PO SCH ×2 (09:10→19:34)
[2021-10-22] MEDS: atenoloL 25 MG TAB PO SCH ×2 (09:38→19:34)
[2021-10-22] MEDS ORDERED: FUROSEMIDE 40 MG TAB PO STA (09:43)
[2021-10-22 09:56] LABS: African American GFR (CKD) 19.2 (60.0-200.0); Anion Gap 10.7 mmol/L (10.00-18.00); BUN/Creat Ratio 22.56 Ratio (12.00-20.00); Blood Urea Nitrogen 56.4 mg/dL (9.0-27.0); Carbon Dioxide 23.3 mmol/L (20.0-27.5); Non-African American GFR(CKD) 16.6 (60.0-200.0); Potassium 4.4 mmol/L (3.5-5.5)
--- NOTE | 2021-10-22 10:05 | P.NPCON ---
History of Present Illness - Reason for Consult acute renal failure - History of Present Illness Patient is a 89-year-old female with history of chronic A. fib, coronary artery disease, hypertension, dementia. He shouldn't was admitted to the hospital with complaints of increased weakness, decreased oral intake. Family was concerned for possible UTI. Patient was noted to have Enterobacter cloacae urinary tract infection as well as bacteremia. She is currently maintained on cefepime. Patient has not received any IV contrast No obstruction noted on ultrasound Blood pressure was noted to be low on 10/20/2021 with systolic around 104-103 mmHg. Patient is maintained on Cozaar 100 mg by mouth daily. Blood pressure this morning however was elevated at 177/78. Patient has an external catheter. Urine output documented at 1.8 L for 24 hours. Serum creatinine was 1.6 on initial admission and increased to 2.7 yesterday. Today it is down to 2.5. Previous creatinine 1.0 on 07/12/2021 Review of Systems As per HPI no diarrhea vomiting noted. Past Medical History Past Medical History: Atrial Fibrillation, Coronary Artery Disease (CAD), Cancer, Dementia, Hearing Disorder / Deafness, Hyperlipidemia, Hypertension, Osteoarthritis (OA), Thyroid Disorder, Vascular Disorder Additional Past Medical History / Comment(s): Hiatal hernia, diverticulitis with bowel resection, degenerative disc and spinal stenosis, low back pain, gouty arthritis, tinnitits bilaterally on occasion, JENA with new hearing aides, sinus problems, frequent urination, poor circulation, varicosities bilaterally, cervical cancer with hysterectomy per past medical record but brandi does not recall this, hypothryroidism. History of Any Multi-Drug Resistant Organisms: None Reported Past Surgical History: Appendectomy, Bowel Resection, Cholecystectomy, Hysterectomy Additional Past Surgical History / Comment(s): Numerous pain procedures for back pain, partial thryoidectomy, sinus surgery, L and R cataract removal with lens implants, possible incisional hernia repair, ventral hernia repair, D & C, colonoscopy, R great toe I&D d/t ulcer.. Past Anesthesia/Blood Transfusion Reactions: No Reported Reaction Additional Past Anesthesia/Blood Transfusion Reaction / Comment(s): Pt has never recieved blood. Smoking Status: Never smoker - Past Family History Father Family Medical History: Coronary Artery Disease (CAD) Additional Family Medical History / Comment(s): Father of heart problem at age 85 yrs. Mother Family Medical History: Diabetes Mellitus Additional Family Medical History / Comment(s): Mother at age 83yrs. She had an amputation of her leg. Medications and Allergies Home Medications Medication Instructions Recorded Confirmed Type Furosemide [Lasix] 40 mg PO DAILY 03/01/14 10/18/21 History Losartan Potassium [Cozaar] 100 mg PO DAILY 03/01/14 10/18/21 History Pravastatin Sodium [Pravachol] 80 mg PO HS 03/01/14 10/18/21 History Apixaban [Eliquis] 2.5 mg PO BID 09/20/18 10/18/21 History Calcium Carbonate [Calcium] 1,200 mg PO DAILY 09/20/18 10/18/21 History allopurinoL [Zyloprim] 100 mg PO HS 09/20/18 10/18/21 History Acetaminophen [Tylenol Arthritis] 1,300 mg PO BID 10/18/21 10/18/21 History Atenolol [Tenormin] 50 mg PO BID 10/18/21 10/18/21 History Cholecalciferol [Vitamin D3 (25 50 mcg PO DAILY 10/18/21 10/18/21 History Mcg = 1000 Iu)] Donepezil [Aricept] 10 mg PO HS 10/18/21 10/18/21 History Fexofenadine HCl [Dionna Allergy] 180 mg PO DAILY 10/18/21 10/18/21 History Levothyroxine Sodium [Synthroid] 175 mcg PO DAILY 10/18/21 10/18/21 History Memantine [Namenda] 10 mg PO BID 10/18/21 10/18/21 History Multivitamin [Multivitamins Adult 2 tab PO DAILY 10/18/21 10/18/21 History Gummies] Allergies Allergy/AdvReac Type Severity Reaction Status Date / Time hydrocodone bitartrate Allergy Unknown Verified 10/18/21 21:34 [From Lortab] lisinopril Allergy Swelling Verified 10/18/21 21:34 sulfamethoxazole Allergy Unknown Verified 10/18/21 21:34 [From Septra] trimethoprim [From Septra] Allergy Unknown Verified 10/18/21 21:34 Physical Exam Vitals: Vital Signs Temp Pulse Pulse Resp BP Pulse Ox 10/22/21 08:00 49 L 22 10/22/21 07:23 98.2 F 48 L 15 135/71 90 L 10/22/21 01:40 97.5 F L 71 20 177/78 91 L 10/21/21 19:12 98.3 F 60 26 H 159/74 92 L 10/21/21 14:00 98.4 F 59 L 15 158/79 90 L Intake and Output 10/21/21 10/22/21 10/22/21 22:59 06:59 14:59 Intake Total 118 Output Total 700 1100 Balance -582 -1100 Intake: Oral 118 Output: Urine 700 1100 Other: Voiding Method External Catheter External Catheter Patient is awake, comfortable, not in any acute distress Examination of the heart S1 and S2 Examination lungs bilateral breath sounds are heard Abdomen is soft Examination lower extremity shows 1+ edema bilaterally. GLOBE TESTER exam shows patient is slow to respond she is hard of hearing but moving all 4 extremities. Results - Lab Results Most recent lab results Calcium 8.9 mg/dL (8.7-10.3) 10/21/21 05:11 10/21/21 05:11 10/21/21 05:11 Assessment and Plan Assessment: 1. Acute kidney injury, ATN, nonoliguric, secondary to underlying infection as well as hypoperfusion in the setting of use of angiotensin receptor blockers. Patient is currently maintained on IV fluids at 50 mL an hour. Lasix is on hold. Ultrasound shows no evidence of obstruction. UA shows 3+ protein but patient has significant UTI 2. Enterobacter cloacae urinary tract infection 3. Enterobacter bacteremia associated with UTI 4. Mental status changes secondary to underlying UTI 5. Hypertension with low blood pressure on 10/20/2021 but currently on the higher side. 6. Chronic A. fib maintained on telemetry Nader 7. Bradycardia, dose of beta blockers decreased 8. Dementia Plan: Hold Cozaar Check chest x-ray Lasix 40 mg by mouth 1 Continue antibiotics Hold IV fluids if chest x-ray shows evidence of pulmonary vascular congestion as patient appears mildly volume overloaded. Repeat labs in a.m. Continue to avoid nephrotoxic agents Thank you for the consultation we'll continue to follow the patient with you during her hospitalization
--- NOTE | 2021-10-22 10:22 | ECHOF ---
Referral Reason:LV fx MEASUREMENTS -------- HEIGHT: 172.7 cm WEIGHT: 127.0 kg BP: 177/78 RVIDd: 3.9 cm (< 3.3) IVSd: 1.3 cm (0.6 - 1.1) LVIDd: 4.7 cm (3.9 - 5.3) LVPWd: 1.8 cm (0.6 - 1.1) IVSs: 2.3 cm LVIDs: 3.0 cm LVPWs: 2.1 cm LAESV Index (A-L): 36.30 ml/m Ao Diam: 3.2 cm (2.0 - 3.7) AV Cusp: 2.0 cm (1.5 - 2.6) LA Diam: 5.0 cm (2.7 - 3.8) MV E Asad: 1.08 m/s MV DecT: 197 ms MV A Asad: 0.84 m/s MV E/A Ratio: 1.29 RAP: 20.00 mmHg RVSP: 77.48 mmHg FINDINGS -------- Resting bradycardia (HR<60bpm). This was a technically adequate study. The left ventricular size is normal. There is mild concentric left ventricular hypertrophy. Overa ll left ventricular systolic function is normal with, an EF between 55 - 60 %. The right ventricle is mild to moderately enlarged. LA is moderately dilated 34-39 ml/m2 The right atrium is moderately enlarged. Interatrial and interventricular septum intact. There is mild aortic valve sclerosis. There is no evidence of aortic regurgitation. There is no e vidence of aortic stenosis. Mild mitral annular calcification present. [id number] mitral regurgitation is present. Moderate tricuspid regurgitation present. There is severe pulmonary hypertension. The right ventr icular systolic pressure, as measured by Doppler, is 77.48mmHg. There is no pulmonic regurgitation present. The aortic root size is normal. The inferior vena cava is dilated with poor inspiratory collapse which is consistent with estimated r ight atrial pressure of 20 mmHg. There is no pericardial effusion. CONCLUSIONS -------- 1. There is mild concentric left ventricular hypertrophy. 2. Overall left ventricular systolic function is normal with, an EF between 55 - 60 %. 3. The right ventricle is mild to moderately enlarged. 4. LA is moderately dilated 34-39 ml/m2 5. The right atrium is moderately enlarged. 6. There is mild aortic valve sclerosis. 7. [id number] mitral regurgitation is present. 8. Moderate tricuspid regurgitation present. 9. There is severe pulmonary hypertension. 10. The right ventricular systolic pressure, as measured by Doppler, is 77.48mmHg. 11. The inferior vena cava is dilated with poor inspiratory collapse which is consistent with estimat ed right atrial pressure of 20 mmHg. FIELD SALES EXECUTIVE: Dulce Guadarrama RDCS
[2021-10-22 11:17] LABS: Basophils # (A) 0.04 X 10*3/uL (0.00-0.10); Basophils % (A) 0.4 %; Eosinophils # (A) 0.13 X 10*3/uL (0.04-0.35); Eosinophils % (A) 1.3 %; HCT 34.7 % (37.2-46.3); HGB 10.9 g/dL (12.0-15.0); Immature Grans, Automated 1.3 %; Lymphocytes % (A) 9.9 %; MCHC 31.4 g/dL (32.0-37.0); MCV 95.6 fL (80.0-97.0); Mean Platelet Volume 12.7 fL (9.5-12.2); Monocytes # (A) 0.76 X 10*3/uL (0.20-1.00); Monocytes % (A) 7.6 %; NRBC Per 100 WBC 0 /100 WBCS (0.0-0.0); Neutrophils % (A) 79.5 %; Platelet Count 112 X 10*3/uL (140-440); RBC 3.63 X 10*6/uL (4.10-5.20); RDW 16.4 % (11.5-14.5); WBC 10.06 X 10*3/uL (4.50-10.00)
--- NOTE | 2021-10-22 16:44 | P.PN ---
Subjective Progress Note Date: 10/22/21 Principal diagnosis: Enterobacter UTI and bacteremia Patient is 89-year-old female with a past medical history significant for recurrent UTI presented to the hospital with extreme weakness concerning for UTI in this patient who did have a positive blood and urine culture with Enterobacter. On today's evaluation that is 10/22/2021, the patient remains to be afebrile the patient is breathing comfortably on nasal cannula oxygen, the patient denies any chest pain shortness of breath or cough no nausea no vomiting no abdominal pain no diarrhea Objective - Vital Signs Vital signs: Vital Signs Temp 98.2 F 10/22/21 07:23 Pulse 49 L 10/22/21 08:00 Resp 22 10/22/21 08:00 BP 135/71 10/22/21 07:23 Pulse Ox 90 L 10/22/21 07:23 Intake & Output 10/21/21 10/22/21 10/22/21 18:59 06:59 18:59 Intake Total 354 Output Total 700 1100 Balance -346 -1100 Intake: Oral 354 Output: Urine 700 1100 Other: Voiding Method External Catheter External Catheter External Catheter - Exam GENERAL DESCRIPTION: An elderly female lying in bed in no distress RESPIRATORY SYSTEM: Unlabored breathing , decreased breath sounds at bases HEART: S1 S2 regular rate and rhythm , ABDOMEN: Soft , no tenderness EXTREMITIES: No edema feet - Labs CBC & Chem 7: 10/22/21 05:46 10/22/21 05:46 Labs: Abnormal Lab Results - Last 24 Hours (Table) 10/22/21 10/22/21 Range/Units 05:46 05:46 WBC 10.06 H (4.50-10.00) X 10*3/uL RBC 3.63 L (4.10-5.20) X 10*6/uL Hgb 10.9 L (12.0-15.0) g/dL Hct 34.7 L (37.2-46.3) % MCHC 31.4 L (32.0-37.0) g/dL RDW 16.4 H (11.5-14.5) % Plt Count 112 L (140-440) X 10*3/uL MPV 12.7 H (9.5-12.2) fL Immature Gran # 0.13 H (0.00-0.04) X 10*3/uL Neutrophils # 8.00 H (1.80-7.70) X 10*3/uL BUN 56.4 H (9.0-27.0) mg/dL Creatinine 2.5 H (0.6-1.5) mg/dL Est GFR (CKD-EPI)AfAm 19.2 L (60.0-200.0) Est GFR (CKD-EPI)NonAf 16.6 L (60.0-200.0) BUN/Creatinine Ratio 22.56 H (12.00-20.00) Ratio Microbiology - Last 24 Hours (Table) 10/20/21 14:56 Blood Culture - Preliminary Blood No Growth after 24 hours 10/18/21 21:54 Urine Culture - Final Urine,Catheterized Enterobacter cloacae 10/18/21 21:25 Blood Culture Gram Stain - Final Blood Blood Culture - Final Enterobacter cloacae 10/18/21 21:10 Blood Culture Gram Stain - Final Blood Blood Culture - Final Enterobacter cloacae Assessment and Plan (1) Positive blood culture Current Visit: Yes Status: Acute Code(s): R78.81 - BACTEREMIA SNOMED Code(s): 986760530 (2) UTI (urinary tract infection) Current Visit: Yes Status: Acute Code(s): N39.0 - URINARY TRACT INFECTION, SITE NOT SPECIFIED SNOMED Code(s): 44208879 Plan: 1patient presented to hospital with extreme weakness no energy in this patient did have a significantly positive UA elevated white count likely from a symptomatic urinary tract infection from enteric gram-negative pathogen. 2Enterobacter bacteremia likely secondary to urinary source. 3 ultrasound of the kidney bladder did not show any structural normality. 4patient is currently being treated with cefepime 1 g every 12hr with the dose adjusted to kidney function to continue on any patient hopefully transition to oral Cipro on discharge . Time with Patient: Less than 30
[2021-10-22] MEDS: SODIUM CHLORIDE 0.9% 1,000 ML IV SCH (19:04)
[2021-10-22] MEDS: atenoloL 50 MG TAB PO SCH (19:12)
[2021-10-22] MEDS: allopurinoL 100 MG TAB PO SCH (19:34)
[2021-10-22] MEDS: PRAVASTATIN SODIUM 80 MG TAB PO SCH (19:34)
[2021-10-23] MEDS: LEVOTHYROXINE 88 MCG TAB PO SCH (04:49)
[2021-10-23] MEDS: CEFEPIME 1 GM in SODIUM CHLORIDE 0.9% 50 ML IVPB SCH ×2 (08:03→19:39)
[2021-10-23] MEDS: SODIUM CHLORIDE 0.9% 1,000 ML IV SCH (08:05)
--- NOTE | 2021-10-23 08:38 | P.PN ---
Subjective Patient is seen in follow-up for acute kidney injury. Currently on IV antibiotics for Enterobacter UTI and bacteremia. She did receive a dose of IV Lasix yesterday. Not on IV fluids. Urine output 2.6 L in the last 24 hours. Denies chest pain or shortness of breath. On room air. Vital signs are stable. General: Awake. No acute distress. HEENT: Head exam is unremarkable. LUNGS: Breath sounds decreased. HEART: Rate and Rhythm are regular. ABDOMEN: Soft, obese. EXTREMITITES: No edema. Objective - Vital Signs Vital signs: Vital Signs Temp 98.1 F 10/23/21 08:00 Pulse 64 10/23/21 08:00 Resp 18 10/23/21 08:00 BP 161/72 10/23/21 08:00 Pulse Ox 90 L 10/23/21 08:00 Intake & Output 10/22/21 10/23/21 10/23/21 18:59 06:59 18:59 Intake Total 236 Output Total 1000 1600 Balance -764 -1600 Intake: Oral 236 Output: Urine 1000 1600 Other: Voiding Method External Catheter External Catheter - Labs CBC & Chem 7: 10/22/21 05:46 10/22/21 05:46 Labs: Abnormal Lab Results - Last 24 Hours (Table) 10/22/21 10/22/21 Range/Units 05:46 05:46 WBC 10.06 H (4.50-10.00) X 10*3/uL RBC 3.63 L (4.10-5.20) X 10*6/uL Hgb 10.9 L (12.0-15.0) g/dL Hct 34.7 L (37.2-46.3) % MCHC 31.4 L (32.0-37.0) g/dL RDW 16.4 H (11.5-14.5) % Plt Count 112 L (140-440) X 10*3/uL MPV 12.7 H (9.5-12.2) fL Immature Gran # 0.13 H (0.00-0.04) X 10*3/uL Neutrophils # 8.00 H (1.80-7.70) X 10*3/uL BUN 56.4 H (9.0-27.0) mg/dL Creatinine 2.5 H (0.6-1.5) mg/dL Est GFR (CKD-EPI)AfAm 19.2 L (60.0-200.0) Est GFR (CKD-EPI)NonAf 16.6 L (60.0-200.0) BUN/Creatinine Ratio 22.56 H (12.00-20.00) Ratio Microbiology - Last 24 Hours (Table) 10/20/21 14:56 Blood Culture - Preliminary Blood No Growth after 48 hours Assessment and Plan Plan: Assessment: 1. Acute kidney injury secondary to ATN secondary to infection and further worsened with the use of ARB. Also component of cardiorenal syndrome. Creatinine was 1.67 on admission and peaked at 2.7. It was 2.5 yesterday. 2. Acute on chronic diastolic CHF with mild to moderate mitral regurgitation, moderate tricuspid regurgitation and severe pulmonary hypertension. 3. Bilateral renal lesions. Possibly cysts versus hydronephrosis. Consider urology eval. 4. Enterobacter UTI and bacteremia on antibiotics. 5. Benign hypertension. Plan: Check chest x-ray. Hep-Lock IV fluids. Encouraged oral intake. Avoid nephrotoxins. Add hydralazine 25 mg 3 times daily. Hold for systolic blood pressure less than 120. Continue to monitor renal function and urine output. Morning labs pending.
[2021-10-23] MEDS: hydrALAZINE HCL 25 MG TAB PO SCH ×3 (09:05→19:39)
[2021-10-23] MEDS: CALCIUM CARBONATE 500 MG CHEWABLE PO SCH (09:05)
[2021-10-23] MEDS: PANTOPRAZOLE 40 MG TABLET PO SCH (09:05)
[2021-10-23] MEDS: atenoloL 25 MG TAB PO SCH ×2 (09:05→19:39)
[2021-10-23] MEDS: MEMANTINE 10 MG TAB PO SCH ×2 (09:05→19:39)
[2021-10-23] MEDS: LORATADINE 10 MG TAB PO SCH (09:05)
[2021-10-23] MEDS: APIXABAN 2.5 MG TABLET PO SCH ×2 (09:05→19:39)
--- NOTE | 2021-10-23 10:32 | XR ---
EXAMINATION TYPE: XR chest 1V DATE OF EXAM: 10/23/2021 9:59 AM COMPARISON:Chest radiographs from 10/18/2021 TECHNIQUE: XR chest 1V Frontal view of the chest. CLINICAL INDICATION:Female, 89 years old with history of sob; FINDINGS: Lungs/Pleura: There is no evidence of pleural effusion, focal consolidation, or pneumothorax. Pulmonary vascularity: Pulmonary vascular congestion. Heart/mediastinum: Cardiomediastinal silhouette is enlarged and stable. Musculoskeletal: No acute osseous pathology. IMPRESSION: Cardiomegaly and mild pulmonary vascular congestion. Correlate with BNP for congestive heart failure.
[2021-10-23 12:06] LABS: African American GFR (CKD) 26 (>60 ml/min/1.73 sqM); Anion Gap 3 mmol/L; Blood Urea Nitrogen 53 mg/dL (7-17); Calcium 9.2 mg/dL (8.4-10.2); Carbon Dioxide 32 mmol/L (22-30); Chloride 102 mmol/L (98-107); Glucose 109 mg/dL (74-99); Magnesium 2.3 mg/dL (1.6-2.3); Non-African American GFR(CKD) 23 (>60 ml/min/1.73 sqM); Potassium 4.1 mmol/L (3.5-5.1); Sodium 137 mmol/L (137-145)
--- NOTE | 2021-10-23 16:36 | P.PN ---
Subjective Progress Note Date: 10/23/21 Principal diagnosis: Enterobacter UTI and bacteremia Patient is 89-year-old female with a past medical history significant for recurrent UTI presented to the hospital with extreme weakness concerning for UTI in this patient who did have a positive blood and urine culture with Enterobacter. On today's evaluation that is 10/23/2021, the patient remains to be afebrile the patient is breathing comfortably on nasal cannula oxygen, the patient just went to sleep to take a nap per the daughter at the bedside as the patient was note woken up Objective - Vital Signs Vital signs: Vital Signs Temp 98.1 F 10/23/21 08:00 Pulse 64 10/23/21 08:00 Resp 18 10/23/21 08:00 BP 161/72 10/23/21 08:00 Pulse Ox 90 L 10/23/21 08:00 Intake & Output 10/22/21 10/23/21 10/23/21 18:59 06:59 18:59 Intake Total 236 240 Output Total 1000 1600 425 Balance -704 -1600 -185 Intake: Oral 236 240 Output: Urine 1000 1600 425 Other: Voiding Method External Catheter External Catheter - Exam Patient is currently lying comfortably in the bed in no distress , rest of exam was deferred per family request the patient is sleeping - Labs CBC & Chem 7: 10/22/21 05:46 10/23/21 11:37 Labs: Abnormal Lab Results - Last 24 Hours (Table) 10/23/21 Range/Units 11:37 Carbon Dioxide 32 H (22-30) mmol/L BUN 53 H (7-17) mg/dL Creatinine 1.93 H (0.52-1.04) mg/dL Glucose 109 H (74-99) mg/dL Microbiology - Last 24 Hours (Table) 10/20/21 14:56 Blood Culture - Preliminary Blood No Growth after 48 hours Assessment and Plan (1) Positive blood culture Current Visit: Yes Status: Acute Code(s): R78.81 - BACTEREMIA SNOMED Code(s): 334885063 (2) UTI (urinary tract infection) Current Visit: Yes Status: Acute Code(s): N39.0 - URINARY TRACT INFECTION, SITE NOT SPECIFIED SNOMED Code(s): 28288816 Plan: 1patient presented to hospital with extreme weakness no energy in this patient did have a significantly positive UA elevated white count likely from a symptomatic urinary tract infection from enteric gram-negative pathogen. 2Enterobacter bacteremia likely secondary to urinary source. 3 ultrasound of the kidney bladder did not show any structural normality. 4patient to continue with cefepime 1 g every 12hr and hopefully finish therapy with oral Cipro daughter at the bedside and they have multiple questions and c oncerns were answered Time with Patient: Less than 30
[2021-10-23] MEDS: allopurinoL 100 MG TAB PO SCH (19:38)
[2021-10-23] MEDS: PRAVASTATIN SODIUM 80 MG TAB PO SCH (19:39)
[2021-10-24] MEDS: LEVOTHYROXINE 88 MCG TAB PO SCH (05:28)
[2021-10-24] MEDS ORDERED: FUROSEMIDE 10 MG/ML 4 ML VIAL IV STA (07:53)
[2021-10-24] MEDS: CEFEPIME 1 GM in SODIUM CHLORIDE 0.9% 50 ML IVPB SCH ×2 (07:55→20:34)
[2021-10-24] MEDS: APIXABAN 2.5 MG TABLET PO SCH ×2 (09:10→20:34)
[2021-10-24] MEDS: hydrALAZINE HCL 25 MG TAB PO SCH (09:10)
[2021-10-24] MEDS: atenoloL 25 MG TAB PO SCH ×2 (09:10→20:34)
[2021-10-24] MEDS: PANTOPRAZOLE 40 MG TABLET PO SCH (09:10)
[2021-10-24] MEDS: CALCIUM CARBONATE 500 MG CHEWABLE PO SCH (09:10)
[2021-10-24] MEDS: MEMANTINE 10 MG TAB PO SCH ×2 (09:11→20:33)
[2021-10-24] MEDS: LORATADINE 10 MG TAB PO SCH (09:11)
--- NOTE | 2021-10-24 10:15 | P.PN ---
Subjective Patient is seen in follow-up for acute kidney injury. Currently on IV antibiotics for Enterobacter UTI and bacteremia. Denies chest pain or shortness of breath. On room air. Nonoliguric. Blood pressure high this morning. Vital signs are stable. General: Awake. No acute distress. HEENT: Head exam is unremarkable. LUNGS: Breath sounds decreased. HEART: Rate and Rhythm are regular. ABDOMEN: Soft, obese. EXTREMITITES: Trace edema. Objective - Vital Signs Vital signs: Vital Signs Temp 97.5 F L 10/24/21 07:56 Pulse 55 L 10/24/21 07:56 Resp 18 10/24/21 07:56 BP 196/77 10/24/21 07:56 Pulse Ox 92 L 10/24/21 07:56 Intake & Output 10/23/21 10/24/21 10/24/21 18:59 06:59 18:59 Intake Total 720 240 Output Total 1450 1100 725 Balance -730 1100 485 Intake: Oral 720 240 Output: Urine 1450 1100 725 Other: Voiding Method External Catheter - Labs CBC & Chem 7: 10/22/21 05:46 10/23/21 11:37 Labs: Abnormal Lab Results - Last 24 Hours (Table) 10/23/21 Range/Units 11:37 Carbon Dioxide 32 H (22-30) mmol/L BUN 53 H (7-17) mg/dL Creatinine 1.93 H (0.52-1.04) mg/dL Glucose 109 H (74-99) mg/dL Microbiology - Last 24 Hours (Table) 10/20/21 14:56 Blood Culture - Preliminary Blood No Growth after 72 hours Assessment and Plan Plan: Assessment: 1. Acute kidney injury secondary to ATN secondary to infection and further worsened with the use of ARB. Also component of cardiorenal syndrome. Creatinine was 1.67 on admission and peaked at 2.7 - 1.93 yesterday. 2. Acute on chronic diastolic CHF with mild to moderate mitral regurgitation, moderate tricuspid regurgitation and severe pulmonary hypertension. 3. Bilateral renal lesions. Possibly cysts versus hydronephrosis. Consider urology eval. 4. Enterobacter UTI and bacteremia on antibiotics. 5. Benign hypertension. Blood pressure high. Plan: Lasix 40 mg IV once today. Start oral Lasix 40 mg daily tomorrow. Encouraged oral intake. Avoid nephrotoxins. Increase dose of hydralazine to 50 mg 3 times daily. Hold for systolic blood pressure less than 120. Add PRN hydralazine as well. Continue to monitor renal function and urine output. Morning labs pending.
[2021-10-24] MEDS: hydrALAZINE HCL 20 MG/ML 1 ML VIAL IVP PRN ×2 (10:40→17:11)
[2021-10-24 11:45] LABS: Anion Gap 10.1 mmol/L (10.00-18.00); BUN/Creat Ratio 28.06 Ratio (12.00-20.00); Blood Urea Nitrogen 44.9 mg/dL (9.0-27.0); Calcium 9.4 mg/dL (8.7-10.3); Carbon Dioxide 25.9 mmol/L (20.0-27.5); Magnesium 2.3 mg/dL (1.5-2.4); Non-African American GFR(CKD) 28.5 (60.0-200.0)
[2021-10-24] MEDS: hydrALAZINE HCL 50 MG TAB PO SCH ×2 (14:46→20:34)
--- NOTE | 2021-10-24 17:41 | P.PN ---
Subjective Progress Note Date: 10/23/21 Principal diagnosis: Enterobacter bacteremia UTI/sepsis Acute renal failure/dehydration 89-year-old female with past medical history remarkable for atrial fibrillation on, CAD, cancer, dementia, hypertension, thyroid disorder who was admitted from emergency Department complaining of fatigue, as well as concern for UTI. For the last one day, patient has had reduced oral intake, has been more tired, there is concern for possible UTI per patient's family members who present with the patient and assist with history taking. Patient provides limited history. Hs no acute complaints at this time. Patient has difficult time and waiting at home. She is chronically weak in bilateral lower extremities. She is a current baseline mental status, just slightly slower to responding to questions per family. She denies chest pain, shortness breath, abdominal pain. Presents for further evaluation. Per patient's family members, she is DO NOT RESUSCITATE DO NOT INTUBATE. Confirm the patient's daughters phone number, who is her power of finance attorney and who is the primary international marketing specialist for the patient. Patient does have an advanced directive. Objective - Vital Signs Vital signs: Vital Signs Temp 97.6 F 10/23/21 14:00 Pulse 55 L 10/23/21 14:00 Resp 20 10/23/21 14:00 BP 151/78 10/23/21 14:00 Pulse Ox 92 L 10/23/21 14:00 Intake & Output 10/22/21 10/23/21 10/23/21 18:59 06:59 18:59 Intake Total 236 720 Output Total 1000 1600 1150 Balance -764 -1600 -430 Intake: Oral 236 720 Output: Urine 1000 1600 1150 Other: Voiding Method External Catheter External Catheter - Exam - Constitutional General appearance: Present: average body habitus, cooperative, no acute distress - EENT Eyes: Present: anicteric sclerae, EOMI, PERRLA, normal appearance ENT: Present: hearing grossly normal, normal oropharynx Ears: bilateral: normal - Neck Neck: Present: normal ROM. Absent: lymphadenopathy, rigidity, thyromegaly Carotids: negative: bruit present Thyroid: bilateral: normal size, negative: enlarged, nodule - Respiratory Respiratory: bilateral: CTA, negative: rales, rhonchi, wheezing - Cardiovascular Rhythm: regular Heart sounds: normal: S1, S2 Abnormal Heart Sounds: Absent: systolic murmur, diastolic murmur - Gastrointestinal General gastrointestinal: Present: normal bowel sounds, soft. Absent: distended, organomegaly, tenderness - Genitourinary Genitourinary Comment(s): deferred - Integumentary Integumentary: Present: normal turgor. Absent: jaundiced, rash, ulcer - Neurologic Neurologic: Present: CNII-XII intact. Absent: focal deficits - Musculoskeletal Musculoskeletal: Present: gait normal, strength equal bilaterally - Psychiatric Psychiatric: Present: Alert - Labs CBC & Chem 7: 10/22/21 05:46 10/24/21 06:38 Labs: Abnormal Lab Results - Last 24 Hours (Table) 10/23/21 Range/Units 11:37 Carbon Dioxide 32 H (22-30) mmol/L BUN 53 H (7-17) mg/dL Creatinine 1.93 H (0.52-1.04) mg/dL Glucose 109 H (74-99) mg/dL Microbiology - Last 24 Hours (Table) 10/20/21 14:56 Blood Culture - Preliminary Blood No Growth after 48 hours Assessment and Plan Assessment: 1. Enterobacter bacteremia likely related to UTI patient presented to hospital with extreme weakness no energy in this patient did have a significantly positive UA elevated white count likely from a symptomatic urinary tract infection from enteric gram-negative pathogen. Enterobacter bacteremia likely secondary to urinary source. ultrasound of the kidney bladder did not show any structural normality. patient is currently being treated with cefepime 1 g every 12hr with the dose adjusted to kidney function to continue on any patient hopefully transition to oral Cipro on discharge . 2. UTI/sepsis 3. Acute renal failure/dehydration 4. Dementia 5. Cardiomyopathy Plan: Continue on current medication regime ,monitoring and symptomatic treatment. Labs returned ,reporting worsening renal function. We'll hold Lasix, gentle IV fluid hydration ordered, obtain echo for LV function and consult nephrology. Antibiotics as per ID. Frequent positioning. Family at bedside, updated, questions and concerns addressed. Prognosis guarded given multiple complex medical issues.
--- NOTE | 2021-10-24 17:42 | P.PN ---
Subjective Progress Note Date: 10/22/21 Principal diagnosis: Enterobacter bacteremia UTI/sepsis Acute renal failure/dehydration 89-year-old female with past medical history remarkable for atrial fibrillation on, CAD, cancer, dementia, hypertension, thyroid disorder who was admitted from emergency Department complaining of fatigue, as well as concern for UTI. For the last one day, patient has had reduced oral intake, has been more tired, there is concern for possible UTI per patient's family members who present with the patient and assist with history taking. Patient provides limited history. Hs no acute complaints at this time. Patient has difficult time and waiting at home. She is chronically weak in bilateral lower extremities. She is a current baseline mental status, just slightly slower to responding to questions per family. She denies chest pain, shortness breath, abdominal pain. Presents for further evaluation. Per patient's family members, she is DO NOT RESUSCITATE DO NOT INTUBATE. Confirm the patient's daughters phone number, who is her power of claims attorney and who is the primary travel clerk for the patient. Patient does have an advanced directive. 10/23/2021 the patient is seen and evaluated with family members at bedside; remains to be afebrile the patient is breathing comfortably on nasal cannula oxygen, the patient just went to sleep to take a nap per the daughter at the bedside as the patient was note woken up Vital signs reviewed revealed temperature of 98.1, pulse 64, this patient 18 and blood pressure 161/72 Lab review shows sodium 137, potassium 4.1, BUN/creatinine of 53/1.93 ID on board and recommending to continue with cefepime 1 g IV every 12 hours with plans to switch to oral Cipro at time of discharge Objective - Vital Signs Vital signs: Vital Signs Temp 98.2 F 10/22/21 07:23 Pulse 49 L 10/22/21 08:00 Resp 22 10/22/21 08:00 BP 135/71 10/22/21 07:23 Pulse Ox 90 L 10/22/21 07:23 Intake & Output 10/21/21 10/22/21 10/22/21 18:59 06:59 18:59 Intake Total 354 Output Total 700 1100 Balance -346 -1100 Intake: Oral 354 Output: Urine 700 1100 Other: Voiding Method External Catheter External Catheter External Catheter - Exam - Constitutional General appearance: Present: average body habitus, cooperative, no acute distress - EENT Eyes: Present: anicteric sclerae, EOMI, PERRLA, normal appearance ENT: Present: hearing grossly normal, normal oropharynx Ears: bilateral: normal - Neck Neck: Present: normal ROM. Absent: lymphadenopathy, rigidity, thyromegaly Carotids: negative: bruit present Thyroid: bilateral: normal size, negative: enlarged, nodule - Respiratory Respiratory: bilateral: CTA, negative: rales, rhonchi, wheezing - Cardiovascular Rhythm: regular Heart sounds: normal: S1, S2 Abnormal Heart Sounds: Absent: systolic murmur, diastolic murmur - Gastrointestinal General gastrointestinal: Present: normal bowel sounds, soft. Absent: distended, organomegaly, tenderness - Genitourinary Genitourinary Comment(s): deferred - Integumentary Integumentary: Present: normal turgor. Absent: jaundiced, rash, ulcer - Neurologic Neurologic: Present: CNII-XII intact. Absent: focal deficits - Musculoskeletal Musculoskeletal: Present: gait normal, strength equal bilaterally - Psychiatric Psychiatric: Present: Alert - Labs CBC & Chem 7: 10/22/21 05:46 10/24/21 06:38 Labs: Abnormal Lab Results - Last 24 Hours (Table) 10/22/21 10/22/21 Range/Units 05:46 05:46 WBC 10.06 H (4.50-10.00) X 10*3/uL RBC 3.63 L (4.10-5.20) X 10*6/uL Hgb 10.9 L (12.0-15.0) g/dL Hct 34.7 L (37.2-46.3) % MCHC 31.4 L (32.0-37.0) g/dL RDW 16.4 H (11.5-14.5) % Plt Count 112 L (140-440) X 10*3/uL MPV 12.7 H (9.5-12.2) fL Immature Gran # 0.13 H (0.00-0.04) X 10*3/uL Neutrophils # 8.00 H (1.80-7.70) X 10*3/uL BUN 56.4 H (9.0-27.0) mg/dL Creatinine 2.5 H (0.6-1.5) mg/dL Est GFR (CKD-EPI)AfAm 19.2 L (60.0-200.0) Est GFR (CKD-EPI)NonAf 16.6 L (60.0-200.0) BUN/Creatinine Ratio 22.56 H (12.00-20.00) Ratio Microbiology - Last 24 Hours (Table) 10/20/21 14:56 Blood Culture - Preliminary Blood No Growth after 24 hours 10/18/21 21:54 Urine Culture - Final Urine,Catheterized Enterobacter cloacae 10/18/21 21:25 Blood Culture Gram Stain - Final Blood Blood Culture - Final Enterobacter cloacae 10/18/21 21:10 Blood Culture Gram Stain - Final Blood Blood Culture - Final Enterobacter cloacae Assessment and Plan Assessment: 1. Enterobacter bacteremia likely related to UTI patient presented to hospital with extreme weakness no energy in this patient did have a significantly positive UA elevated white count likely from a symptomatic urinary tract infection from enteric gram-negative pathogen. Enterobacter bacteremia likely secondary to urinary source. ultrasound of the kidney bladder did not show any structural normality. patient is currently being treated with cefepime 1 g every 12hr with the dose adjusted to kidney function to continue on any patient hopefully transition to oral Cipro on discharge . 2. UTI/sepsis 3. Acute renal failure/dehydration 4. Dementia 5. Cardiomyopathy Plan: Continue on current medication regime ,monitoring and symptomatic charleen tment. Labs returned ,reporting worsening renal function. We'll hold Lasix, gentle IV fluid hydration ordered, obtain echo for LV function and consult nephrology. Antibiotics as per ID. Frequent positioning. Family at bedside, updated, questions and concerns addressed. Prognosis guarded given multiple complex medical issues.
--- NOTE | 2021-10-24 17:45 | P.PN ---
Subjective Progress Note Date: 10/24/21 Principal diagnosis: Enterobacter bacteremia UTI/sepsis Acute renal failure/dehydration 89-year-old female with past medical history remarkable for atrial fibrillation on, CAD, cancer, dementia, hypertension, thyroid disorder who was admitted from emergency Department complaining of fatigue, as well as concern for UTI. For the last one day, patient has had reduced oral intake, has been more tired, there is concern for possible UTI per patient's family members who present with the patient and assist with history taking. Patient provides limited history. Hs no acute complaints at this time. Patient has difficult time and waiting at home. She is chronically weak in bilateral lower extremities. She is a current baseline mental status, just slightly slower to responding to questions per family. She denies chest pain, shortness breath, abdominal pain. Presents for further evaluation. Per patient's family members, she is DO NOT RESUSCITATE DO NOT INTUBATE. Confirm the patient's daughters phone number, who is her power of consumer attorney and who is the primary construction specialist for the patient. Patient does have an advanced directive. 10/23/2021 the patient is seen and evaluated with family members at bedside; remains to be afebrile the patient is breathing comfortably on nasal cannula oxygen, the patient just went to sleep to take a nap per the daughter at the bedside as the patient was note woken up Vital signs reviewed revealed temperature of 98.1, pulse 64, this patient 18 and blood pressure 161/72 Lab review shows sodium 137, potassium 4.1, BUN/creatinine of 53/1.93 ID on board and recommending to continue with cefepime 1 g IV every 12 hours with plans to switch to oral Cipro at time of discharge 10/24/2021 Patient is seen and evaluated with multiple family members at bedside; patient requesting to be discharged home; discharge plan discussed with patient and daughter is at bedside and they're agreeable with possible discharge in next 24 hours with home health care; according to daughter, patient has multiple caregivers at home and all of the necessary equipment Vital signs are reviewed and stable with temperature 97.5, pulse 55, respiration 18 and blood pressure 196/77 Creatinine continues to improve; patient is encouraged improved oral intake; nephrology recommending to continue with IV Lasix with plans to switch to oral Lasix 40 mg daily tomorrow Hydralazine is increased to 50 mg 3 times a day for improved blood pressure control Objective - Vital Signs Vital signs: Vital Signs Temp 97.5 F L 10/24/21 07:56 Pulse 70 10/24/21 12:15 Resp 18 10/24/21 12:15 BP 193/82 10/24/21 12:15 Pulse Ox 94 L 10/24/21 12:15 Intake & Output 10/23/21 10/24/21 10/24/21 18:59 06:59 18:59 Intake Total 720 240 Output Total 1450 1100 1225 Balance -730 -1100 -985 Intake: Oral 720 240 Output: Urine 1450 1100 1225 Other: Voiding Method External Catheter - Exam - Constitutional General appearance: Present: average body habitus, cooperative, no acute distress - EENT Eyes: Present: anicteric sclerae, EOMI, PERRLA, normal appearance ENT: Present: hearing grossly normal, normal oropharynx Ears: bilateral: normal - Neck Neck: Present: normal ROM. Absent: lymphadenopathy, rigidity, thyromegaly Carotids: negative: bruit present Thyroid: bilateral: normal size, negative: enlarged, nodule - Respiratory Respiratory: bilateral: CTA, negative: rales, rhonchi, wheezing - Cardiovascular Rhythm: regular Heart sounds: normal: S1, S2 Abnormal Heart Sounds: Absent: systolic murmur, diastolic murmur - Gastrointestinal General gastrointestinal: Present: normal bowel sounds, soft. Absent: distended, organomegaly, tenderness - Genitourinary Genitourinary Comment(s): deferred - Integumentary Integumentary: Present: normal turgor. Absent: jaundiced, rash, ulcer - Neurologic Neurologic: Present: CNII-XII intact. Absent: focal deficits - Musculoskeletal Musculoskeletal: Present: gait normal, strength equal bilaterally - Psychiatric Psychiatric: Present: Alert - Labs CBC & Chem 7: 10/22/21 05:46 10/24/21 06:38 Labs: Abnormal Lab Results - Last 24 Hours (Table) 10/24/21 Range/Units 06:38 BUN 44.9 H (9.0-27.0) mg/dL Creatinine 1.6 H (0.6-1.5) mg/dL Est GFR (CKD-EPI)AfAm 33.0 L (60.0-200.0) Est GFR (CKD-EPI)NonAf 28.5 L (60.0-200.0) BUN/Creatinine Ratio 28.06 H (12.00-20.00) Ratio Glucose 117 H (70-110) mg/dL Microbiology - Last 24 Hours (Table) 10/20/21 14:56 Blood Culture - Preliminary Blood No Growth after 72 hours Assessment and Plan Assessment: 1. Enterobacter bacteremia likely related to UTI patient presented to hospital with extreme weakness no energy in this patient did have a significantly positive UA elevated white count likely from a symptomatic urinary tract infection from enteric gram-negative pathogen. Enterobacter bacteremia likely secondary to urinary source. ultrasound of the kidney bladder did not show any structural normality. patient is currently being treated with cefepime 1 g every 12hr with the dose adjusted to kidney function to continue on any patient hopefully transition to oral Cipro on discharge . 2. UTI/sepsis 3. Acute renal failure/dehydration 4. Dementia 5. Cardiomyopathy Plan: Continue on current medication regime ,monitoring and symptomatic treatment. Labs returned ,reporting worsening renal function. We'll hold Lasix, gentle IV fluid hydration ordered, obtain echo for LV function and consult nephrology. Antibiotics as per ID. Frequent positioning. Family at bedside, updated, questions and concerns addressed. Prognosis guarded given multiple complex medical issues.
[2021-10-24] MEDS: allopurinoL 100 MG TAB PO SCH (20:33)
[2021-10-24] MEDS: PRAVASTATIN SODIUM 80 MG TAB PO SCH (20:34)
--- NOTE | 2021-10-24 23:55 | P.PN ---
Subjective Progress Note Date: 10/24/21 Principal diagnosis: Enterobacter UTI and bacteremia Patient is 89-year-old female with a past medical history significant for recurrent UTI presented to the hospital with extreme weakness concerning for UTI in this patient who did have a positive blood and urine culture with Enterobacter. On today's evaluation that is 10/24/2021, the patient continues to be afebrile the patient is breathing comfortably on nasal cannula oxygen, the patient denies any chest pain shortness of breath or cough no nausea no vomiting no abdominal pain no diarrhea Objective - Vital Signs Vital signs: Vital Signs Temp 98.3 F 10/24/21 13:51 Pulse 74 10/24/21 13:51 Resp 20 10/24/21 13:51 BP 183/82 10/24/21 13:51 Pulse Ox 94 L 10/24/21 13:51 Intake & Output 10/23/21 10/24/21 10/24/21 18:59 06:59 18:59 Intake Total 720 240 Output Total 1450 1100 2225 Balance - Intake: Oral 720 240 Output: Urine 1450 1100 2225 Other: Voiding Method External Catheter - Exam Patient is currently lying comfortably in the bed in no distress , rest of exam was deferred per family request the patient is sleeping - Labs CBC & Chem 7: 10/22/21 05:46 10/24/21 06:38 Labs: Abnormal Lab Results - Last 24 Hours (Table) 10/24/21 Range/Units 06:38 BUN 44.9 H (9.0-27.0) mg/dL Creatinine 1.6 H (0.6-1.5) mg/dL Est GFR (CKD-EPI)AfAm 33.0 L (60.0-200.0) Est GFR (CKD-EPI)NonAf 28.5 L (60.0-200.0) BUN/Creatinine Ratio 28.06 H (12.00-20.00) Ratio Glucose 117 H (70-110) mg/dL Microbiology - Last 24 Hours (Table) 10/20/21 14:56 Blood Culture - Preliminary Blood No Growth after 72 hours Assessment and Plan (1) Positive blood culture Current Visit: Yes Status: Acute Code(s): R78.81 - BACTEREMIA SNOMED Code(s): 212691390 (2) UTI (urinary tract infection) Current Visit: Yes Status: Acute Code(s): N39.0 - URINARY TRACT INFECTION, SITE NOT SPECIFIED SNOMED Code(s): 83310217 Plan: 1patient presented to hospital with extreme weakness no energy in this patient did have a significantly positive UA elevated white count likely from a symptomatic urinary tract infection from enteric gram-negative pathogen. 2Enterobacter bacteremia likely secondary to urinary source. 3 ultrasound of the kidney bladder did not show any structural normality. 4patient seemed to have clinically improved with cefepime 1 g every 12hr and will finish therapy with oral Cipro 10 days on discharge Time with Patient: Less than 30
[2021-10-25 03:36] VITALS: RESP 16
[2021-10-25] MEDS: LEVOTHYROXINE 88 MCG TAB PO SCH (05:21)
[2021-10-25] MEDS: CEFEPIME 1 GM in SODIUM CHLORIDE 0.9% 50 ML IVPB SCH (08:44)
[2021-10-25] MEDS: APIXABAN 2.5 MG TABLET PO SCH (08:45)
[2021-10-25] MEDS: CALCIUM CARBONATE 500 MG CHEWABLE PO SCH (08:45)
[2021-10-25] MEDS: hydrALAZINE HCL 50 MG TAB PO SCH ×2 (08:45→15:55)
[2021-10-25] MEDS: LORATADINE 10 MG TAB PO SCH (08:46)
[2021-10-25] MEDS: atenoloL 25 MG TAB PO SCH (08:46)
[2021-10-25] MEDS: MEMANTINE 10 MG TAB PO SCH (08:46)
[2021-10-25] MEDS: PANTOPRAZOLE 40 MG TABLET PO SCH (08:46)
[2021-10-25] MEDS ORDERED: FUROSEMIDE 40 MG TAB PO SCH (09:00)
[2021-10-25 09:18] LABS: African American GFR (CKD) 28.6 (60.0-200.0); Anion Gap 10.2 mmol/L (10.00-18.00); BUN/Creat Ratio 22.78 Ratio (12.00-20.00); Calcium 9.6 mg/dL (8.7-10.3); Carbon Dioxide 27.8 mmol/L (20.0-27.5); Magnesium 2.3 mg/dL (1.5-2.4); Non-African American GFR(CKD) 24.7 (60.0-200.0); Potassium 3.9 mmol/L (3.5-5.5)
--- NOTE | 2021-10-25 10:28 | P.PN ---
Subjective Patient is seen in follow-up for acute kidney injury. Currently on IV antibiotics for Enterobacter UTI and bacteremia. Denies chest pain or shortness of breath. On 2 L nasal cannula. Nonoliguric. Renal function slightly worse from diuresis. Creatinine 1.8 today. Vital signs are stable. General: Awake. No acute distress. HEENT: Head exam is unremarkable. LUNGS: Breath sounds decreased. HEART: Rate and Rhythm are regular. ABDOMEN: Soft, obese. EXTREMITITES: Trace edema. Objective - Vital Signs Vital signs: Vital Signs Temp 97.4 F L 10/25/21 08:00 Pulse 65 10/25/21 08:00 Resp 16 10/25/21 08:00 BP 158/67 10/25/21 08:00 Pulse Ox 96 10/25/21 10:25 Intake & Output 10/24/21 10/25/21 10/25/21 18:59 06:59 18:59 Intake Total 476 Output Total 2625 900 Balance -2149 -900 Intake: Oral 476 Output: Urine 2625 900 Other: Voiding Method External Catheter - Labs CBC & Chem 7: 10/22/21 05:46 10/25/21 06:45 Labs: Abnormal Lab Results - Last 24 Hours (Table) 10/24/21 10/25/21 Range/Units 06:38 06:45 Carbon Dioxide 27.8 H (20.0-27.5) mmol/L BUN 44.9 H 41.0 H (9.0-27.0) mg/dL Creatinine 1.6 H 1.8 H (0.6-1.5) mg/dL Est GFR (CKD-EPI)AfAm 33.0 L 28.6 L (60.0-200.0) Est GFR (CKD-EPI)NonAf 28.5 L 24.7 L (60.0-200.0) BUN/Creatinine Ratio 28.06 H 22.78 H (12.00-20.00) Ratio Glucose 117 H 119 H (70-110) mg/dL Microbiology - Last 24 Hours (Table) 10/20/21 14:56 Blood Culture - Preliminary Blood No Growth after 96 hours Assessment and Plan Plan: Assessment: 1. Acute kidney injury secondary to ATN secondary to infection and further worsened with the use of ARB. Also component of cardiorenal syndrome. Creatinine was 1.67 on admission and peaked at 2.7 - 1. today. 2. Acute on chronic diastolic CHF with mild to moderate mitral regurgitation, moderate tricuspid regurgitation and severe pulmonary hypertension. 3. Bilateral renal lesions. Possibly cysts versus hydronephrosis. Consider ur ology eval. 4. Enterobacter UTI and bacteremia on antibiotics. 5. Benign hypertension. Better controlled. 6. Volume overload. Plan: Start oral Lasix 40 mg daily. Encouraged oral intake. Avoid nephrotoxins. Continue to monitor renal function and urine output. Repeat BMP and magnesium low 2-3 days postdischarge. Follow up outpatient in 1 week.
--- NOTE | 2021-10-25 12:23 | P.PN ---
Subjective Progress Note Date: 10/25/21 Patient is confined to her room due to weakness and CHF. she will need hospital bed and bedside commode . Objective - Vital Signs Vital signs: Vital Signs Temp 97.4 F L 10/25/21 08:00 Pulse 65 10/25/21 08:00 Resp 16 10/25/21 08:00 BP 158/67 10/25/21 08:00 Pulse Ox 96 10/25/21 10:25 Intake & Output 10/24/21 10/25/21 10/25/21 18:59 06:59 18:59 Intake Total 476 Output Total 2625 900 Balance -2148900 Intake: Oral 476 Output: Urine 2626 900 Other: Voiding Method External Catheter - Labs CBC & Chem 7: 10/22/21 05:46 10/25/21 06:45 Labs: Abnormal Lab Results - Last 24 Hours (Table) 10/25/21 Range/Units 06:45 Carbon Dioxide 27.8 H (20.0-27.5) mmol/L BUN 41.0 H (9.0-27.0) mg/dL Creatinine 1.8 H (0.6-1.5) mg/dL Est GFR (CKD-EPI)AfAm 28.6 L (60.0-200.0) Est GFR (CKD-EPI)NonAf 24.7 L (60.0-200.0) BUN/Creatinine Ratio 22.78 H (12.00-20.00) Ratio Glucose 119 H (70-110) mg/dL Microbiology - Last 24 Hours (Table) 10/20/21 14:56 Blood Culture - Preliminary Blood No Growth after 96 hours Assessment and Plan (1) Acute sepsis Current Visit: Yes Status: Acute Code(s): A41.9 - SEPSIS, UNSPECIFIED ORGANISM SNOMED Code(s): 62660798 (2) Dehydration Current Visit: Yes Status: Acute Code(s): E86.0 - DEHYDRATION SNOMED Code(s): 78851778 (3) Positive blood culture Current Visit: Yes Status: Acute Code(s): R78.81 - BACTEREMIA SNOMED Code (s): 229262597 (4) UTI (urinary tract infection) Current Visit: Yes Status: Acute Code(s): N39.0 - URINARY TRACT INFECTION, SITE NOT SPECIFIED SNOMED Code(s): 93738973 (5) Cardiomyopathy Current Visit: No Status: Acute Code(s): I42.9 - CARDIOMYOPATHY, UNSPECIFIED SNOMED Code(s): 36280575 (6) Dementia Current Visit: Yes Status: Acute Code(s): F03.90 - UNSPECIFIED DEMENTIA WITHOUT BEHAVIORAL DISTURBANCE SNOMED Code(s): 55615541
[2021-10-25 14:44] VITALS: BP 155/66; PULSE 63; TEMP 98.2
== END 2021-10-25 18:04 | disposition home or self-care (01) | DRG 871 ==
LOC: EC 20:01 → 6NMEDSUR 10-19 00:05 → OBSVTOIN 10-19 14:01 → 6NMEDSUR 10-19 16:32
PROVIDERS: ADMIT Family Medicine; ATTEND Family Medicine
DX: A41.59 Other Gram-negative sepsis (principal); I50.33 Acute on chronic diastolic (congestive) heart failure; N17.0 Acute kidney failure with tubular necrosis; I42.9 Cardiomyopathy, unspecified; I13.0 Hypertensive heart and chronic kidney disease with heart failure and stage 1 through stage 4 chronic kidney disease, or unspecified chronic kidney disease; I48.20 Chronic atrial fibrillation, unspecified; N39.0 Urinary tract infection, site not specified; E03.9 Hypothyroidism, unspecified; E66.9 Obesity, unspecified; E78.5 Hyperlipidemia, unspecified; E86.0 Dehydration; E87.6 Hypokalemia; F03.90 Unspecified dementia, unspecified severity, without behavioral disturbance, psychotic disturbance, mood disturbance, and anxiety; Z66 Do not resuscitate; H91.93 Unspecified hearing loss, bilateral; Z97.4 Presence of external hearing-aid; I08.1 Rheumatic disorders of both mitral and tricuspid valves; I25.10 Atherosclerotic heart disease of native coronary artery without angina pectoris; M10.9 Gout, unspecified; I27.20 Pulmonary hypertension, unspecified; I44.0 Atrioventricular block, first degree; N18.9 Chronic kidney disease, unspecified; R03.1 Nonspecific low blood-pressure reading; M48.00 Spinal stenosis, site unspecified; H93.13 Tinnitus, bilateral; Z79.01 Long term (current) use of anticoagulants; R00.1 Bradycardia, unspecified; Z79.890 Hormone replacement therapy; Z79.899 Other long term (current) drug therapy; Z82.49 Family history of ischemic heart disease and other diseases of the circulatory system; Z83.3 Family history of diabetes mellitus; Z85.41 Personal history of malignant neoplasm of cervix uteri; Z87.440 Personal history of urinary (tract) infections; Z90.710 Acquired absence of both cervix and uterus; Z98.42 Cataract extraction status, left eye; Z98.41 Cataract extraction status, right eye; Z96.1 Presence of intraocular lens; Z98.890 Other specified postprocedural states; R35.0 Frequency of micturition; Z88.2 Allergy status to sulfonamides; Z90.49 Acquired absence of other specified parts of digestive tract
CPT/HCPCS: 36415; 70450; 71045; 71046; 76770; 80048; 80053; 80306; 81001; 82140; 83605; 83735; 84484; 85025; 85027; 85610; 85730; 87040; 87077; 87086; 87186; 93005; 93306; 96361; 96365; 96366; 99285

== ENCOUNTER 2021-12-23 07:43 | Inpatient (IN) | payer MEDICARE ==
--- NOTE | 2021-12-23 08:04 | ED ---
General Adult HPI - General Chief complaint: Shortness of Breath Stated complaint: [place] Time Seen by Provider: 12/23/21 07:48 Source: patient, EMS, RN notes reviewed, old records reviewed Mode of arrival: EMS Limitations: no limitations - History of Present Illness Initial comments: 89-year-old female presenting with increased work of breathing. History is obtained from the patient and paramedics. She does have a history of dementia. There's been several days of increased dyspnea. Patient reports a mild cough. No fever. No chest pain. History of atrial fibrillation currently on Eliquis. - Related Data Home Medications Medication Instructions Recorded Confirmed Furosemide [Lasix] 40 mg PO DAILY 03/01/14 12/23/21 Pravastatin Sodium [Pravachol] 80 mg PO HS 03/01/14 12/23/21 Apixaban [Eliquis] 2.5 mg PO BID 09/20/18 12/23/21 allopurinoL [Zyloprim] 100 mg PO DAILY 09/20/18 12/23/21 Donepezil [Aricept] 10 mg PO HS 10/18/21 12/23/21 Levothyroxine Sodium [Synthroid] 175 mcg PO DAILY 10/18/21 12/23/21 Memantine [Namenda] 10 mg PO BID 10/18/21 12/23/21 Albuterol Inhaler [Ventolin Hfa 1 puff INHALATION RT-Q6H PRN 12/23/21 12/23/21 Inhaler] Previous Rx's Medication Instructions Recorded atenoloL [Tenormin] 25 mg PO BID #60 tab 10/25/21 hydrALAZINE HCL [Apresoline] 50 mg PO TID #90 tab 10/25/21 Allergies Allergy/AdvReac Type Severity Reaction Status Date / Time hydrocodone bitartrate Allergy Unknown Verified 12/23/21 08:06 [From Lortab] lisinopril Allergy Swelling Verified 12/23/21 08:06 sulfamethoxazole Allergy Unknown Verified 12/23/21 08:06 [From Septra] trimethoprim [From Septra] Allergy Unknown Verified 12/23/21 08:06 Review of Systems ROS Statement: Those systems with pertinent positive or pertinent negative responses have been documented in the HPI. ROS Other: All systems not noted in ROS Statement are negative. Past Medical History Past Medical History: Atrial Fibrillation, Coronary Artery Disease (CAD), Cancer, Dementia, Hearing Disorder / Deafness, Hyperlipidemia, Hypertension, Osteoarthritis (OA), Thyroid Disorder, Vascular Disorder Additional Past Medical History / Comment(s): Hiatal hernia, diverticulitis with bowel resection, degenerative disc and spinal stenosis, low back pain, gouty arthritis, tinnitits bilaterally on occasion, [place] with new hearing aides, sinus problems, frequent urination, poor circulation, varicosities bilaterally, cervical cancer with hysterectomy per past medical record but brandi does not recall this, hypothryroidism. History of Any Multi-Drug Resistant Organisms: None Reported Past Surgical History: Appendectomy, Bowel Resection, Cholecystectomy, Hysterectomy Additional Past Surgical History / Comment(s): Numerous pain procedures for back pain, partial thryoidectomy, sinus surgery, L and R cataract removal with lens implants, possible incisional hernia repair, ventral hernia repair, D & C, colonoscopy, R great toe I&D d/t ulcer.. Past Anesthesia/Blood Transfusion Reactions: No Reported Reaction Additional Past Anesthesia/Blood Transfusion Reaction / Comment(s): Pt has never recieved blood. Past Psychological History: No Psychological Hx Reported Smoking Status: Never smoker Past Alcohol Use History: None Reported Past Drug Use History: None Reported - Past Family History Father Family Medical History: Coronary Artery Disease (CAD) Additional Family Medical History / Comment(s): Father of heart problem at age 85 yrs. Mother Family Medical History: Diabetes Mellitus Additional Family Medical History / Comment(s): Mother at age 83yrs. She had an amputation of her leg. General Exam Limitations: no limitations General appearance: alert, in no apparent distress Head exam: Present: atraumatic, normocephalic Eye exam: Present: normal appearance, PERRL ENT exam: Present: normal exam Neck exam: Present: normal inspection. Absent: tenderness, meningismus Respiratory exam: Present: rales, accessory muscle use, decreased breath sounds Cardiovascular Exam: Present: regular rate, irregular rhythm GI/Abdominal exam: Present: soft. Absent: distended, tenderness, guarding, rebound Extremities exam: Present: pedal edema Neurological exam: Present: alert, CN II-XII intact. Absent: motor sensory deficit Skin exam: Present: warm, dry, intact. Absent: cyanosis, diaphoretic Course Vital Signs 12/23/21 12/23/21 07:47 07:53 Temperature 97.5 F L Pulse Rate 61 Respiratory 18 22 Rate Blood Pressure 144/76 O2 Sat by Pulse 88 L Oximetry EKG Findings - EKG Comments: EKG Findings:: EKG: H fibrillation conduction delay no ST segment elevation, artifact in V5, ventricular rate 64, QRS duration 126, QTC 441 Medical Decision Making - Medical Decision Making 89-year-old female with chronic kidney disease, CHF, H fibrillation presenting with increased difficulty breathing over the past several days. Patient does have moderate work of breathing and Rales bilaterally. Chest x-ray shows increased pulmonary edema. She has peripheral edema as well. Her troponin is negative, BNP is elevated at 4000. Kidney function is stable at 1.5. She was hypoxic upon arrival and will require admission for IV diuresis. Case discussed with Dr. Denny who will admit. - Lab Data Result diagrams: 12/23/21 08:08 12/23/21 08:08 Lab Results 12/23/21 12/23/21 12/23/21 Range/Units 08:08 08:08 08:08 WBC 5.4 (3.8-10.6) k/uL RBC 4.29 (3.80-5.40) m/uL Hgb 11.7 (11.4-16.0) gm/dL Hct 42.1 (34.0-46.0) % MCV 98.2 (80.0-100.0) fL MCH 27.4 (25.0-35.0) pg MCHC 27.9 L (31.0-37.0) g/dL RDW 15.5 (11.5-15.5) % Plt Count 169 D (150-450) k/uL MPV 9.2 Neutrophils % 74 % Lymphocytes % 17 % Monocytes % 5 % Eosinophils % 1 % Basophils % 1 % Neutrophils # 4.0 (1.3-7.7) k/uL Lymphocytes # 0.9 L (1.0-4.8) k/uL Monocytes # 0.3 (0-1.0) k/uL Eosinophils # 0.1 (0-0.7) k/uL Basophils # 0.1 (0-0.2) k/uL Hypochromasia Marked Macrocytosis Slight PT 11.5 (9.0-12.0) sec INR 1.1 (<1.2) APTT 25.8 (22.0-30.0) sec Sodium 141 (137-145) mmol/L Potassium 4.4 (3.5-5.1) mmol/L Chloride 103 (98-107) mmol/L Carbon Dioxide 32 H (22-30) mmol/L Anion Gap 6 mmol/L BUN 45 H (7-17) mg/dL Creatinine 1.47 H (0.52-1.04) mg/dL Est GFR (CKD-EPI)AfAm 36 (>60 ml/min/1.73 sqM) Est GFR (CKD-EPI)NonAf 31 (>60 ml/min/1.73 sqM) Glucose 114 H (74-99) mg/dL Calcium 10.7 H (8.4-10.2) mg/dL Magnesium 2.5 H (1.6-2.3) mg/dL Total Bilirubin 1.0 (0.2-1.3) mg/dL AST 39 H (14-36) U/L ALT 23 (4-34) U/L Alkaline Phosphatase 191 H (38-126) U/L Troponin I (0.000-0.034) ng/mL NT-Pro-B Natriuret Pep pg/mL Total Protein 6.1 L (6.3-8.2) g/dL Albumin 3.8 (3.5-5.0) g/dL 12/23/21 12/23/21 Range/Units 08:08 08:08 WBC (3.8-10.6) k/uL RBC (3.80-5.40) m/uL Hgb (11.4-16.0) gm/dL Hct (34.0-46.0) % MCV (80.0-100.0) fL MCH (25.0-35.0) pg MCHC (31.0-37.0) g/dL RDW (11.5-15.5) % Plt Count (150-450) k/uL MPV Neutrophils % % Lymphocytes % % Monocytes % % Eosinophils % % Basophils % % Neutrophils # (1.3-7.7) k/uL Lymphocytes # (1.0-4.8) k/uL Monocytes # (0-1.0) k/uL Eosinophils # (0-0.7) k/uL Basophils # (0-0.2) k/uL Hypochromasia Macrocytosis PT (9.0-12.0) sec INR (<1.2) APTT (22.0-30.0) sec Sodium (137-145) mmol/L Potassium (3.5-5.1) mmol/L Chloride (98-107) mmol/L Carbon Dioxide (22-30) mmol/L Anion Gap mmol/L BUN (7-17) mg/dL Creatinine (0.52-1.04) mg/dL Est GFR (CKD-EPI)AfAm (>60 ml/min/1.73 sqM) Est GFR (CKD-EPI)NonAf (>60 ml/min/1.73 sqM) Glucose (74-99) mg/dL Calcium (8.4-10.2) mg/dL Magnesium (1.6-2.3) mg/dL Total Bilirubin (0.2-1.3) mg/dL AST (14-36) U/L ALT (4-34) U/L Alkaline Phosphatase (38-126) U/L Troponin I 0.019 (0.000-0.034) ng/mL NT-Pro-B Natriuret Pep 3830 pg/mL Total Protein (6.3-8.2) g/dL Albumin (3.5-5.0) g/dL Disposition Clinical Impression: Congestive heart failure, CKD (chronic kidney disease) Disposition: ADMITTED IP TO THIS HOSP Condition: Stable Is patient prescribed a controlled substance at d/c from ED?: No Referrals: Mp Denny DO [Primary Care Provider] - 1-2 days Time of Disposition: 09:52
--- NOTE | 2021-12-23 08:45 | XR ---
EXAMINATION TYPE: XR chest 2V DATE OF EXAM: 12/23/2021 COMPARISON: NONE TECHNIQUE: PA and lateral views submitted. HISTORY: Difficulty breathing FINDINGS: Heart is enlarged. There is a diffuse interstitial pattern with bilateral infiltrate and pleural effu mariola. Atherosclerotic change of aorta. Chronic rib cage deformities are seen. Elevated clavicle relat nichole to the acromion likely related to AC joint separation. IMPRESSION: 1. Findings are most typical of CHF. Correlate clinically to exclude atypical pneumonia. 2. Correlate for left AC joint separation.
[2021-12-23 08:46] LABS: Basophils # (A) 0.1 k/uL (0-0.2); Basophils % (A) 1 %; Eosinophils # (A) 0.1 k/uL (0-0.7); Eosinophils % (A) 1 %; HCT 42.1 % (34.0-46.0); HGB 11.7 gm/dL (11.4-16.0); Hypochromasia Marked; Lymphocytes # (A) 0.9 k/uL (1.0-4.8); Lymphocytes % (A) 17 %; MCH 27.4 pg (25.0-35.0); MCHC 27.9 g/dL (31.0-37.0); MCV 98.2 fL (80.0-100.0); Macrocytosis Slight; Mean Platelet Volume 9.2; Monocytes # (A) 0.3 k/uL (0-1.0); Monocytes % (A) 5 %; Neutrophils % (A) 74 %; RBC 4.29 m/uL (3.80-5.40); RDW 15.5 % (11.5-15.5); WBC 5.4 k/uL (3.8-10.6)
[2021-12-23 08:47] LABS: Albumin 3.8 g/dL (3.5-5.0); Calcium 10.7 mg/dL (8.4-10.2); Magnesium 2.5 mg/dL (1.6-2.3); Potassium 4.4 mmol/L (3.5-5.1); Total Protein 6.1 g/dL (6.3-8.2)
[2021-12-23 08:51] LABS: INR 1.1 (<1.2); Prothrombin Time 11.5 sec (9.0-12.0)
[2021-12-23 08:52] LABS: Partial Thromboplastin Time 25.8 sec (22.0-30.0); Platelet Count 169 k/uL (150-450)
[2021-12-23] MEDS ORDERED: FUROSEMIDE 10 MG/ML 4 ML VIAL IV STA (09:48)
[2021-12-23] MEDS ORDERED: NALOXONE 0.4 MG/ML 1 ML VIAL IV PRN (09:48)
[2021-12-23] MEDS: hydrALAZINE HCL 50 MG TAB PO SCH ×2 (16:18→20:20)
[2021-12-23] MEDS: atenoloL 25 MG TAB PO SCH (20:20)
[2021-12-23] MEDS: APIXABAN 2.5 MG TABLET PO SCH (20:20)
[2021-12-23] MEDS: MEMANTINE 10 MG TAB PO SCH (20:20)
[2021-12-23] MEDS ORDERED: DONEPEZIL 10 MG TAB PO SCH (21:00)
[2021-12-23] MEDS ORDERED: PRAVASTATIN SODIUM 80 MG TAB PO SCH (21:00)
[2021-12-23] MEDS ORDERED: FUROSEMIDE 10 MG/ML 4 ML VIAL IV SCH (21:00)
[2021-12-24] MEDS ORDERED: LEVOTHYROXINE 88 MCG TAB PO SCH (07:30)
[2021-12-24] MEDS ORDERED: FUROSEMIDE 10 MG/ML 4 ML VIAL IV SCH (09:00)
[2021-12-24] MEDS: atenoloL 25 MG TAB PO SCH (10:19)
[2021-12-24] MEDS: hydrALAZINE HCL 50 MG TAB PO SCH (10:19)
[2021-12-24] MEDS: APIXABAN 2.5 MG TABLET PO SCH (10:19)
[2021-12-24] MEDS: MEMANTINE 10 MG TAB PO SCH (10:20)
[2021-12-24 11:16] VITALS: BP 96/41; PULSE 65
[2021-12-24 11:16] LABS: Calcium 10.5 mg/dL (8.4-10.2)
[2021-12-24 11:20] LABS: Potassium 6.4 mmol/L (3.5-5.1)
--- NOTE | 2021-12-24 11:40 | P.CRDCN ---
History of Present Illness History of present illness: HISTORY OF PRESENTING ILLNESS This is a pleasant 89-year-old female past medical history significant for severe pulmonary hypertension, dyslipidemia, hypertension, long-standing persistent atrial fibrillation on Eliquis, mild nonobstructive coronary artery disease. She follows in the office with Dr. Duong. We have been asked to see in consultation for congestive heart failure. Patient is seen and examined at bedside, she is lethargic, not oriented. She is unable to say why she is in the hospital. Information obtained from records, EMR and nursing staff. Patient apparently presented via EMS secondary to worsening altered mental status and dyspnea. Patient was started on IV Lasix per the emergency department due to concerns for congestive heart failure. DIAGNOSTICS EKG reveals atrial fibrillation, heart rate 64, no acute ST or T-wave abnormalities Telemetry tracings indicate atrial fibrillation with controlled ventricular rate. Chest xray diffuse interstitial pattern with bilateral infiltrate and pleural effusions. Recent echocardiogram 10/2021 revealed an EF of 5560 percent, mild to moderate mitral regurgitation, severe pulmonary hypertension with RVSP of 77 mmHg Laboratory reviewed, WBC 5.4, hemoglobin 11.7, platelets 169, sodium 141, potassium 4.4, BUN 45, serum creatinine 1.4, magnesium 2.5, troponin negative, proBNP 3830 Current home cardiac medications include hydralazine 50 mg 3 times a day, atenolol 25 mg twice a day, pravastatin 80 mg nightly, Eliquis 2.5 mg twice a day REVIEW OF SYSTEMS At the time of my exam: Unable to get an accurate review of systems due to patient's mental status PHYSICAL EXAMINATION Blood pressure 96/41, heart rate 65, afebrile, oxygen saturation is 100% 6 L nasal cannula CONSTITUTIONAL: Lethargic HEENT: Head is normocephalic. Pupils are equal, round. Sclerae anicteric. Mucous membranes of the mouth are dry. No JVD. No carotid bruit. CHEST EXAMINATION: Lungs are diminished bilaterally to auscultation. No chest wall tenderness is noted on palpation or with deep breathing. HEART EXAMINATION: Irregular rate and rhythm. S1, S2 heard. Systolic ejection murmur at apex ABDOMEN: Soft, Positive bowel sounds. EXTREMITIES: no lower extremity edema and no calf tenderness. NEUROLOGIC EXAMINATION: Patient is lethargic, not alert. Not oriented. Not following commands. ASSESSMENT Altered mental status Reports of increased dyspnea, likely related to severe pulmonary hypertension Acute on chronic kidney disease Chronic heart failure with preserved ejection fraction Severe pulmonary hypertension History of hypertension Dyslipidemia Long-standing persistent fibrillation on Eliquis Mild nonobstructive coronary artery disease PLAN From a cardiology perspective, we do not recommend aggressive Diuresis. Patient unable to take PO medications will make IV Lasix 40mg daily. Palliative has been consulted, family is considering hospice per primary which we agree. We do no recommend any invasive procedures at this time. We will follow the patient as needed. Please reach out with any further questions or concerns. Nurse practitioner note has been reviewed by physician. Signing provider agrees with the documented findings, assessment, and plan of care. Past Medical History Past Medical History: Atrial Fibrillation, Coronary Artery Disease (CAD), Cancer, Dementia, Hearing Disorder / Deafness, Hyperlipidemia, Hypertension, Osteoarthritis (OA), Thyroid Disorder, Vascular Disorder Additional Past Medical History / Comment(s): Hiatal hernia, diverticulitis with bowel resection, degenerative disc and spinal stenosis, low back pain, gouty arthritis, tinnitits bilaterally on occasion, [place] with new hearing aides, sinus problems, frequent urination, poor circulation, varicosities bilaterally, cervical cancer with hysterectomy per past medical record but brandi does not recall this, hypothryroidism. History of Any Multi-Drug Resistant Organisms: None Reported Past Surgical History: Appendectomy, Bowel Resection, Cholecystectomy, Hysterectomy Additional Past Surgical History / Comment(s): Numerous pain procedures for back pain, partial thryoidectomy, sinus surgery, L and R cataract removal with lens implants, possible incisional hernia repair, ventral hernia repair, D & C, colonoscopy, R great toe I&D d/t ulcer.. Past Anesthesia/Blood Transfusion Reactions: No Reported Reaction Additional Past Anesthesia/Blood Transfusion Reaction / Comment(s): Pt has never recieved blood. Past Psychological History: No Psychological Hx Reported Additional Psychological History / Comment(s): Pt has a grown brandi who lives with her. Pt ambulates with a walker and it has become increasingly difficult. Pt feeds self and normally washes self up and dresses self. Her brandi, Tameka, manages her medications and drives pt. Smoking Status: Never smoker Past Alcohol Use History: None Reported Past Drug Use History: None Reported - Past Family History Father Family Medical History: Coronary Artery Disease (CAD) Additional Family Medical History / Comment(s): Father of heart problem at age 85 yrs. Mother Family Medical History: Diabetes Mellitus Additional Family Medical History / Comment(s): Mother at age 83yrs. She had an amputation of her leg. Medications and Allergies Home Medications Medication Instructions Recorded Confirmed Type Furosemide [Lasix] 40 mg PO DAILY 03/01/14 12/23/21 History Pravastatin Sodium [Pravachol] 80 mg PO HS 03/01/14 12/23/21 History Apixaban [Eliquis] 2.5 mg PO BID 09/20/18 12/23/21 History allopurinoL [Zyloprim] 100 mg PO DAILY 09/20/18 12/23/21 History Donepezil [Aricept] 10 mg PO HS 10/18/21 12/23/21 History Levothyroxine Sodium [Synthroid] 175 mcg PO DAILY 10/18/21 12/23/21 History Memantine [Namenda] 10 mg PO BID 10/18/21 12/23/21 History atenoloL [Tenormin] 25 mg PO BID #60 tab 10/25/21 12/23/21 Rx hydrALAZINE HCL [Apresoline] 50 mg PO TID #90 tab 10/25/21 12/23/21 Rx Albuterol Inhaler [Ventolin Hfa 1 puff INHALATION RT-Q6H PRN 12/23/21 12/23/21 History Inhaler] Allergies Allergy/AdvReac Type Severity Reaction Status Date / Time hydrocodone bitartrate Allergy Unknown Verified 12/23/21 08:06 [From Lortab] lisinopril Allergy Swelling Verified 12/23/21 08:06 sulfamethoxazole Allergy Unknown Verified 12/23/21 08:06 [From Septra] trimethoprim [From Septra] Allergy Unknown Verified 12/23/21 08:06 Physical Exam Vitals: Vital Signs Temp Pulse Pulse Resp BP BP Pulse Ox 12/24/21 08:00 97.2 F L 65 20 96/41 100 12/24/21 04:00 96.8 F L 95 20 107/54 95 12/24/21 02:00 85 18 12/24/21 00:00 97.1 F L 85 18 118/74 93 L 12/23/21 20:00 97.1 F L 77 18 124/67 96 12/23/21 16:00 66 18 133/61 95 12/23/21 13:00 59 L 18 115/72 98 12/23/21 11:29 67 17 134/68 98 Intake and Output 12/23/21 12/24/21 12/24/21 22:59 06:59 14:59 Intake Total 318 Output Total 75 Balance 318 -75 Intake: Oral 318 Output: Urine 75 Other: Voiding Method External Catheter External Catheter External Catheter Weight 136.078 kg 130 kg Results 12/23/21 08:08 12/24/21 10:19 Comprehensive Metabolic Panel 12/24/21 Range/Units 10:19 Sodium 139 (137-145) mmol/L Potassium 6.4 H* (3.5-5.1) mmol/L Chloride 108 H (98-107) mmol/L Carbon Dioxide 25 (22-30) mmol/L BUN 51 H (7-17) mg/dL Creatinine 1.91 H (0.52-1.04) mg/dL Glucose 134 H (74-99) mg/dL Calcium 10.5 H (8.4-10.2) mg/dL Current Medications Generic Name Dose Route Start Last Admin Trade Name Freq PRN Reason Stop Dose Admin Apixaban 2.5 mg 12/23/21 21:00 12/24/21 10:19 Apixaban 2.5 Mg Tablet PO Not Given BID [facility] Protocol Atenolol 25 mg 12/23/21 21:00 12/24/21 10:19 Atenolol 25 Mg Tab PO Not Given BID [facility] Donepezil HCl 10 mg 12/23/21 21:00 12/23/21 20:20 Donepezil 10 Mg Tab PO 10 mg HS [facility] Administration Furosemide 40 mg 12/24/21 09:00 12/24/21 09:21 Furosemide 10 Mg/Ml 4 Ml Vial IV 40 mg DAILY [facility] Administration Hydralazine HCl 50 mg 12/23/21 16:00 12/24/21 10:19 Hydralazine Hcl 50 Mg Tab PO Not Given TID [facility] Levothyroxine Sodium 176 mcg 12/24/21 07:30 12/24/21 06:19 Levothyroxine 88 Mcg Tab PO 176 mcg AC-[id number] [facility]TA[facility] Administration Memantine 10 mg 12/23/21 21:00 12/24/21 10:20 Memantine 10 Mg Tab PO Not Given BID [facility] Naloxone HCl 0.2 mg 12/23/21 09:48 Naloxone 0.4 Mg/Ml 1 Ml Vial IV Q2M PRN Opioid Reversal Pravastatin Sodium 80 mg 12/23/21 21:00 12/23/21 21:51 Pravastatin Sodium 80 Mg Tab PO 80 mg HS [facility] Administration Intake and Output 12/23/21 12/24/21 12/24/21 22:59 06:59 14:59 Intake Total 318 Output Total 75 Balance 318 -75 Intake: Oral 318 Output: Urine 75 Other: Voiding Method External Catheter External Catheter External Catheter Weight 136.078 kg 130 kg 12/23/21 08:08 12/24/21 10:19
--- NOTE | 2021-12-24 12:50 | P.CONS ---
History of Present Illness - Reason for Consult Consult date: 12/24/21 Goals of care Requesting physician: Mp Denny - Chief Complaint Dyspnea - History of Present Illness The patient is a 89-year-old female with CKD IIIA, severe pulmonary hyp ertension, CHF, dylipidemia, HTN, CAD, and A fib (on Eliquis), presented to the on 12/23/2021 with increased difficulty breathing over the past several days. The patient's Chest x-ray showed increased pulmonary edema. She also had significant peripheral edema as well. Her troponin was negative, BNP was elevated at 4000 Creatinine at 1.5. She was hypoxic upon arrival and required IV diuresis. EKG reveals atrial fibrillation with a controlled rate. Chest xray diffuse interstitial pattern with bilateral infiltrate and pleural effusions. Recent echocardiogram 10/2021 revealed an EF of 5560 percent, mild to moderate mitral regurgitation, severe pulmonary hypertension with RVSP of 77 mmHg Laboratory reviewed, WBC 5.4, hemoglobin 11.7, platelets 169, sodium 141, potassium 4.4, BUN 45, serum creatinine 1.4, magnesium 2.5, troponin negative, proBNP 3830 Cardiology was consulted. They do not recommend aggressive diuresis. Patient unable to take PO medications, changed to IV Lasix 40mg daily. We do no recommend any invasive procedures at this time. family is considering hospice. Review of Systems ROS unobtainable: due to mental status Past Medical History Past Medical History: Atrial Fibrillation, Coronary Artery Disease (CAD), Cancer, Dementia, Hearing Disorder / Deafness, Hyperlipidemia, Hypertension, Osteoarthritis (OA), Thyroid Disorder, Vascular Disorder Additional Past Medical History / Comment(s): Hiatal hernia, diverticulitis with bowel resection, degenerative disc and spinal stenosis, low back pain, gouty arthritis, tinnitits bilaterally on occasion, [place] with new hearing aides, sinus problems, frequent urination, poor circulation, varicosities bilaterally, cervical cancer with hysterectomy per past medical record but [facility] does not recall this, hypothryroidism. History of Any Multi-Drug Resistant Organisms: None Reported Past Surgical History: Appendectomy, Bowel Resection, Cholecystectomy, Hysterectomy Additional Past Surgical History / Comment(s): Numerous pain procedures for back pain, partial thryoidectomy, sinus surgery, L and R cataract removal with lens implants, possible incisional hernia repair, ventral hernia repair, D & C, colonoscopy, R great toe I&D d/t ulcer.. Past Anesthesia/Blood Transfusion Reactions: No Reported Reaction Additional Past Anesthesia/Blood Transfusion Reaction / Comm: Pt has never recieved blood. Past Psychological History: No Psychological Hx Reported Additional Psychological History / Comment(s): Pt has a grown brandi who lives with her. Pt ambulates with a walker and it has become increasingly difficult. Pt feeds self and normally washes self up and dresses self. Her brandi, Tameka, manages her medications and drives pt. Smoking Status: Never smoker Past Alcohol Use History: None Reported Past Drug Use History: None Reported - Past Family History Father Family Medical History: Coronary Artery Disease (CAD) Additional Family Medical History / Comment(s): Father of heart problem at age 85 yrs. Mother Family Medical History: Diabetes Mellitus Additional Family Medical History / Comment(s): Mother at age 83yrs. She had an amputation of her leg. Medications and Allergies Home Medications Medication Instructions Recorded Confirmed Type Furosemide [Lasix] 40 mg PO DAILY 03/01/14 12/23/21 History Pravastatin Sodium [Pravachol] 80 mg PO HS 03/01/14 12/23/21 History Apixaban [Eliquis] 2.5 mg PO BID 09/20/18 12/23/21 History allopurinoL [Zyloprim] 100 mg PO DAILY 09/20/18 12/23/21 History Donepezil [Aricept] 10 mg PO HS 10/18/21 12/23/21 History Levothyroxine Sodium [Synthroid] 175 mcg PO DAILY 10/18/21 12/23/21 History Memantine [Namenda] 10 mg PO BID 10/18/21 12/23/21 History atenoloL [Tenormin] 25 mg PO BID #60 tab 10/25/21 12/23/21 Rx hydrALAZINE HCL [Apresoline] 50 mg PO TID #90 tab 10/25/21 12/23/21 Rx Albuterol Inhaler [Ventolin Hfa 1 puff INHALATION RT-Q6H PRN 12/23/21 12/23/21 History Inhaler] Allergies Allergy/AdvReac Type Severity Reaction Status Date / Time hydrocodone bitartrate Allergy Unknown Verified 12/23/21 08:06 [From Lortab] lisinopril Allergy Swelling Verified 12/23/21 08:06 sulfamethoxazole Allergy Unknown Verified 12/23/21 08:06 [From ] trimethoprim [From ] Allergy Unknown Verified 12/23/21 08:06 Physical Exam Vitals: Vital Signs Temp Pulse Pulse Resp BP BP Pulse Ox 12/24/21 08:00 97.2 F L 65 20 96/41 100 12/24/21 04:00 96.8 F L 95 20 107/54 95 12/24/21 02:00 85 18 12/24/21 00:00 97.1 F L 85 18 118/74 93 L 12/23/21 20:00 97.1 F L 77 18 124/67 96 12/23/21 16:00 66 18 133/61 95 12/23/21 13:00 59 L 18 115/72 98 Intake and Output 12/23/21 12/24/21 12/24/21 22:59 06:59 14:59 Intake Total 318 Output Total 75 Balance 318 -75 Intake: Oral 318 Output: Urine 75 Other: Voiding Method External Catheter External Catheter External Catheter Weight 136.078 kg 130 kg General: Patient is obtunded. HEENT: Head is atraumatic, normocephalic Sclerae are clear. Pupils equal and round. Dry mucus membranes. CV: Irregular in rate and rhythm positive S1 and S2. + systolic murmur, Peripheral pulses equal. 2/4 Lungs: Diminshed to auscultation bilaterally. + crackles to bilateral bases, + upper airway rattle, + increased work of breathing, tachypneic, 6L NC Abdomen/GI: Soft. Bowel sounds present in all 4 quadrants. Bowel sounds normoactive. : external catheter with dark yellow urine Musculoskeletal/ Extremities: No tenderness on muscular exam. No ecchymosis. Vascular: Radial pulses equal. 2/4. +2 peripheral edema Neurologic: Obtunded, opens eyes to physical stimulus, does not follow commands Results CBC & Chem 7: 12/23/21 08:08 12/24/21 10:19 Labs: Abnormal Lab Results - Last 24 Hours (Table) 12/24/21 Range/Units 10:19 Potassium 6.4 H* (3.5-5.1) mmol/L Chloride 108 H (98-107) mmol/L BUN 51 H (7-17) mg/dL Creatinine 1.91 H (0.52-1.04) mg/dL Glucose 134 H (74-99) mg/dL Calcium 10.5 H (8.4-10.2) mg/dL Chest x-ray: report reviewed Assessment and Plan Assessment: Reason for consult -Goals of care, family considering hospice Social * Occupation - retired * Marital status - , passed 9 years ago * Children/grandchildren - 7 adult children, 6 daughters and 1 son * Residence - [address] * Who do you reside with - daughter Tameka for past 10 years * ETOH - rare * Tobacco - never smoked * Illicit drugs - no Spiritual/Cultural * A spiritual person - Yes * Jain - Missionary * Belong to a particular caodaism - [facility] * Beliefs a source of comfort and strength - Yes * Bahai or cultural practices restrictions - No * EOL considerations/rituals? 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 + short term memory loss * Insight and judgment - Not intact * Depression - unable to assess * Suicidal thoughts - unable to assess * Good support system - yes, large family * Patients goals - unable to assess * Frequent hospitalizations - no * Desire to keep coming back to the hospital for treatment - no Plan: Symptoms * Pain - CPOT - 0, has chronic back pain * Fatigue - yes, patient lethargic * SOB - yes, increased over last couple days, increased wob and tachypneic, on 6L NC, unable to clear secretions - has upper airway rattle * Insomnia - no * N/V - no * Anxiety - no * Depression - bon * Confusion - yes * Agitation - no * Hallucinations - no * Appetite/weight loss - no recent weight loss, pt too lethargic to eat at this time * Dysphagia - bon * Constipation - chronic constipation, LBM 6/7 per daughter * Incontinence - yes, has external catheter * Itch - no Summary/Goals - The patient is resting in bed. She is obtunded and is hard to awaken. Her breathing is slightly labored, she has an upper airway rattle, and is on 6L NC. Met with four of the patient's daughters, including DPTameka LUEVANO. Explained palliative care and hospice philosophies. Provided education on patient's CHF, failing treatments, and poor prognosis. Answered all questions. Tameka states that she has had conversations regarding wishes towards end of life with her mother. She would not want to be on life support. She also states the patient would want to be at home to pass peacefully with family surrounding her. Hospice is consulted already and family is awaiting an informational meeting today. They are leaning towards taking her home with hospice services. They were informed that the patient appears to be more inpatient hospice appropriate. It was explained that there is always the chance that the patient could pass in the ambulance on the way home. They stated they only live 3 minutes from the hospital and are willing understand the risk. They do not want inpatient hospice and prefer to take her home. Recommendations - Home with hospice care Advanced Directives - Yes, DaughterTameka DPOA Code Status - DNR Thank you for this consult Prerna Shepard [facility] Palliative Care [facility] [id number] Email: [email or web address] Time with Patient: Greater than 30
[2021-12-24] MEDS ORDERED: INSULIN REGULAR 100 UNIT/ML VIAL (IV) IV ONE (13:17)
[2021-12-24] MEDS ORDERED: IPRATROPIUM-ALBUTEROL 3 ML NEB INHALATION PRN (13:22)
[2021-12-24] MEDS ORDERED: DEXTROSE 50% SYRINGE 50 ML IVP STA (13:22)
[2021-12-24] MEDS ORDERED: SODIUM BICARB 8.4% 50 ML SYR (1 MEQ/ML) IV STA (13:23)
[2021-12-24] MEDS ORDERED: CALCIUM GLUCONATE IN NACL 1 GM in SALINE 1 100ML.BAG IVPB ONE (13:24)
--- NOTE | 2021-12-24 14:07 | P.HPIM ---
History of Present Illness H&P Date: 12/24/21 Chief Complaint: Worsening dyspnea, lethargic, not eating Patient is a 89-year-old female with past medical history remarkable for atrial fibrillation, severe pulmonary hypertension, CAD, cancer, dementia, hypertension, thyroid disorder who was brought into emergency Department by EMS with complaints of increased dyspnea times several days, with inability to eat and decline mental status as per ER report(no family at bedside). O2 sat on admission 88% on room air, tachypneic- respiratory rate 22, accessory muscle use, shallow breathing. Currently requiring 6 L nasal cannula to maintain O2 sats of mid 90s. Respiratory rate 20. Chest x-ray reports diffuse interstitial pattern with bilateral infiltrates and pleural effusion most typical of CHF. Afebrile, normal WBC. Hemoglobin 11.7, platelets 169, INR 1.1, sodium 141, potassium 4.4, bicarbonate 32, BUN 45, creatinine 1.47, glucose 114, magnesium 2.5, troponin 0.019, proBNP 3830. Recent echocardiogram 10/2021 revealed an EF of 5560 percent, mild to moderate mitral regurgitation, severe pulmonary hypertension with RVSP of 77 mmHg. EKG review as per cardiology. Minimal urine output is 75 MLS over the last 12 hours reported per staff.This morning's labs pending. Review of Systems Review of Systems Unable to obtain secondary to patient's lethargy, no family at bedside Past Medical History Past Medical History: Atrial Fibrillation, Coronary Artery Disease (CAD), Cancer, Dementia, Hearing Disorder / Deafness, Hyperlipidemia, Hypertension, Osteoarthritis (OA), Thyroid Disorder, Vascular Disorder Additional Past Medical History / Comment(s): Hiatal hernia, diverticulitis with bowel resection, degenerative disc and spinal stenosis, low back pain, gouty arthritis, tinnitits bilaterally on occasion, [place] with new hearing aides, sinus problems, frequent urination, poor circulation, varicosities bilaterally, cervical cancer with hysterectomy per past medical record but brandi does not recall this, hypothryroidism. History of Any Multi-Drug Resistant Organisms: None Reported Past Surgical History: Appendectomy, Bowel Resection, Cholecystectomy, Hysterectomy Additional Past Surgical History / Comment(s): Numerous pain procedures for back pain, partial thryoidectomy, sinus surgery, L and R cataract removal with lens implants, possible incisional hernia repair, ventral hernia repair, D & C, colonoscopy, R great toe I&D d/t ulcer.. Past Anesthesia/Blood Transfusion Reactions: No Reported Reaction Additional Past Anesthesia/Blood Transfusion Reaction / Comment(s): Pt has never recieved blood. Past Psychological History: No Psychological Hx Reported Additional Psychological History / Comment(s): Pt has a grown brandi who lives with her. Pt ambulates with a walker and it has become increasingly difficult. Pt feeds self and normally washes self up and dresses self. Her brandi, Tameka, manages her medications and drives pt. Smoking Status: Never smoker Past Alcohol Use History: None Reported Past Drug Use History: None Reported - Past Family History Father Family Medical History: Coronary Artery Disease (CAD) Additional Family Medical History / Comment(s): Father of heart problem at age 85 yrs. Mother Family Medical History: Diabetes Mellitus Additional Family Medical History / Comment(s): Mother at age 83yrs. She had an amputation of her leg. Medications and Allergies Home Medications Medication Instructions Recorded Confirmed Type Furosemide [Lasix] 40 mg PO DAILY 03/01/14 12/23/21 History Pravastatin Sodium [Pravachol] 80 mg PO HS 03/01/14 12/23/21 History Apixaban [Eliquis] 2.5 mg PO BID 09/20/18 12/23/21 History allopurinoL [Zyloprim] 100 mg PO DAILY 09/20/18 12/23/21 History Donepezil [Aricept] 10 mg PO HS 10/18/21 12/23/21 History Levothyroxine Sodium [Synthroid] 175 mcg PO DAILY 10/18/21 12/23/21 History Memantine [Namenda] 10 mg PO BID 10/18/21 12/23/21 History atenoloL [Tenormin] 25 mg PO BID #60 tab 10/25/21 12/23/21 Rx hydrALAZINE HCL [Apresoline] 50 mg PO TID #90 tab 10/25/21 12/23/21 Rx Albuterol Inhaler [Ventolin Hfa 1 puff INHALATION RT-Q6H PRN 12/23/21 12/23/21 History Inhaler] Allergies Allergy/AdvReac Type Severity Reaction Status Date / Time hydrocodone bitartrate Allergy Unknown Verified 12/23/21 08:06 [From Lortab] lisinopril Allergy Swelling Verified 12/23/21 08:06 sulfamethoxazole Allergy Unknown Verified 12/23/21 08:06 [From ] trimethoprim [From ] Allergy Unknown Verified 12/23/21 08:06 Physical Exam Vitals: Vital Signs Temp Pulse Pulse Resp BP BP Pulse Ox 12/24/21 08:00 97.2 F L 65 20 96/41 100 12/24/21 04:00 96.8 F L 95 20 107/54 95 12/24/21 02:00 85 18 12/24/21 00:00 97.1 F L 85 18 118/74 93 L 12/23/21 20:00 97.1 F L 77 18 124/67 96 12/23/21 16:00 66 18 133/61 95 Intake and Output 12/23/21 12/24/21 12/24/21 22:59 06:59 14:59 Intake Total 318 Output Total 75 Balance 318 -75 Intake: Oral 318 Output: Urine 75 Other: Voiding Method External Catheter External Catheter External Catheter Weight 136.078 kg 130 kg GENERAL: This is a 89-year-old , lethargic, respiratory effort increased, minimally alert, not following commands, confused HEENT: Head is atraumatic, normocephalic. Pupils are equal, round, Sclerae anicteric. Conjunctivae are clear. Mucus membranes of the mouth are dry. Neck is supple. RESPIRATORY: Diminished, fine basilar crackles CARDIOVASCULAR: S1 and S2, irregular, positive systolic murmur GASTROINTESTINAL: No distention noted. Abdomen soft and round. Normal active bowel sounds auscultated x 4 quadrants. No pain or tenderness noted upon palpation. INTEGUMENTARY: No cyanosis. No jaundice. No rashes noted. No cellulitis noted. EXTREMITIES: 2+ peripheral pulses. evidence of edema. No calf tenderness noted. 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 Labs pending. Significant lethargy, decline. PCP, Dr. Denny discussed hospice with patient and daughters approximately 3 weeks ago, patient currently is a DO NOT RESUSCITATE. Patient is appropriate for hospice/palliative care at this time. Hospice [facility]YSTER GRADER consulted. Evaluated by cardiology, aggressive diuresing not recommended. Continue on IV push diuretics, unable to take oral meds. Prognosis poor given multiple complex medical issues. Maintain supportive care. The impression and plan of care has been dictated as directed. : I performed a history and examination of this patient, discussed the same with the dictator. I agree with the dictator's note ,documented as a scribe. Any additional findings or plans will be noted.
[2021-12-24 14:12] VITALS: RESP 16; TEMP 97
[2021-12-24] MEDS: IPRATROPIUM-ALBUTEROL 3 ML NEB INHALATION SCH ×2 (15:26→15:28)
--- NOTE | 2021-12-28 16:23 | CDI ---
Documentation Clarification Form Date: 12/28/2021 04:05:47 PM From: Mi Richards RN, CCDS Email: [email or web address] Admit Date: 12/23/2021 09:49:00 AM Patient Name: Danielle Bingham Visit Number: [id number] Discharge Date: 12/24/2021 03:39:00 PM ATTENTION: The Clinical Documentation Specialists (CDI) and [facility] Coding Staff appreciate your assistance in clarifying documentation. Please respond to the clarification below the line at the bottom and electronically sign. The CDI & [facility] Coding staff will review the response and follow-up if needed. Please note: Queries are made part of the Legal Health Record. If you have any questions, please contact the author of this message via ITS. Dr. Mp Denny Your patient was hypoxic on arrival requiring diuresis. Based on this information and the findings below, is there an additional diagnosis that is clinically appropriate for this patient? History/Risk Factors: CKD stage 4, CHF, Atrial fibrillation, severe Pulmonary Hypertension - presenting with increased difficulty breathing over the past several days and lethargy. Clinical Indicators: 12/23 ED: Chest x-ray shows increased pulmonary edema. She has peripheral edema as well. 12/24 H&P: complaints of increased dyspnea times several days, with inability to eat and decline in mental status as per ER report (no family at bedside). O2 sat on admission 88% on room air, tachypneic- respiratory rate 22, accessory muscle use, shallow breathing. Currently requiring 6L nasal cannula to maintain O2 sats of mid 90s. 12/24 Nursing: short of breath, accessory muscle use, tachypnea, shallow respirations Pulse oximetry: 88% on admission 12/15 Consult: Lung/Breathing assessment: diminished 12/23 CXR: heart is enlarged. Findings typical of CHF. Treatment: IV Lasix 40mg Q12H Breathing tx: A/A Q4H O2: 4-6LNC Is there an additional diagnosis that is clinically appropriate for this patient? [ X ] Acute Hypoxic Respiratory Failure (pO2 <60 mm Hg or SpO2 <91% on room air) [ ] Other Diagnosis, please specify [ ] Unable to determine MTDD
--- NOTE | 2021-12-28 16:42 | CDI ---
Documentation Clarification Form Date: 12/28/2021 04:24:30 PM From: Mi Richards RN, CCDS Email: [email or web address] Admit Date: 12/23/2021 09:49:00 AM Patient Name: Danielle Bingham Visit Number: [id number] Discharge Date: 12/24/2021 03:39:00 PM ATTENTION: The Clinical Documentation Specialists (CDI) and [facility] Coding Staff appreciate your assistance in clarifying documentation. Please respond to the clarification below the line at the bottom and electronically sign. The CDI & [facility] Coding staff will review the response and follow-up if needed. Please note: Queries are made part of the Legal Health Record. If you have any questions, please contact the author of this message via ITS. Dr. Mp Denny Your patient has the documented symptom of Altered Mental Status in the progress notes. Additional clarification is requested. History/Risk Factors: CKD stage 4, CHF, Atrial fibrillation, severe Pulmonary Hypertension - presenting with increased difficulty breathing over the past several days and lethargy. Clinical Indicators: 12/24 H&P: Pt feeds self and normally washes self up and dresses self. Brought into emergency Department by EMS with complaints of increased dyspnea times several days, with inability to eat and decline mental status as per ER report (no family at bedside). 12/24 Consult: Patient apparently presented via EMS secondary to worsening altered mental status and dyspnea. 12/24 Consult: Patient is obtunded. Neurologic: Obtunded, opens eyes to physical stimulus, does not follow commands. Admission Labs: BNP 3830, K+ 6.6, Cr 1.91, CO2 32, Ca 10.5, Mg 2.5, Alk Phos 191 12/23 CXR: heart is enlarged. Findings typical of CHF. Treatment: IV Lasix 40mg Q12H, Breathing tx: A/A Q4H, O2: 4-6LNC, IV NaHCO3 50ml x1, Ca gluconate IV x1 Please clarify the etiology of the symptom of Altered Mental Status: [ X ] Metabolic Encephalopathy [ ] Other condition (please specify) [ ] Unable to determine MTDD
== END 2021-12-24 15:39 | disposition expired | DRG 291 ==
LOC: EC 07:43 → 3SCARD 09:49
PROVIDERS: ADMIT Family Medicine; ATTEND Family Medicine
DX: I13.0 Hypertensive heart and chronic kidney disease with heart failure and stage 1 through stage 4 chronic kidney disease, or unspecified chronic kidney disease (principal); G93.41 Metabolic encephalopathy; I50.33 Acute on chronic diastolic (congestive) heart failure; J96.01 Acute respiratory failure with hypoxia; I48.11 Longstanding persistent atrial fibrillation; N18.4 Chronic kidney disease, stage 4 (severe); I27.20 Pulmonary hypertension, unspecified; F03.90 Unspecified dementia, unspecified severity, without behavioral disturbance, psychotic disturbance, mood disturbance, and anxiety; Z66 Do not resuscitate; Z51.5 Encounter for palliative care; Z28.310 Unvaccinated for COVID-19; I34.0 Nonrheumatic mitral (valve) insufficiency; I25.10 Atherosclerotic heart disease of native coronary artery without angina pectoris; E78.5 Hyperlipidemia, unspecified; E89.0 Postprocedural hypothyroidism; E87.5 Hyperkalemia; H91.90 Unspecified hearing loss, unspecified ear; K44.9 Diaphragmatic hernia without obstruction or gangrene; M48.00 Spinal stenosis, site unspecified; M10.9 Gout, unspecified; G89.29 Other chronic pain; M54.50 Low back pain, unspecified; H93.13 Tinnitus, bilateral; M19.90 Unspecified osteoarthritis, unspecified site; I83.93 Asymptomatic varicose veins of bilateral lower extremities; I99.9 Unspecified disorder of circulatory system; K59.09 Other constipation; R32 Unspecified urinary incontinence; R35.0 Frequency of micturition; Z79.01 Long term (current) use of anticoagulants; Z79.890 Hormone replacement therapy; Z79.899 Other long term (current) drug therapy; Z90.49 Acquired absence of other specified parts of digestive tract; Z87.19 Personal history of other diseases of the digestive system; Z97.4 Presence of external hearing-aid; Z90.710 Acquired absence of both cervix and uterus; Z85.41 Personal history of malignant neoplasm of cervix uteri; Z98.42 Cataract extraction status, left eye; Z98.41 Cataract extraction status, right eye; Z96.1 Presence of intraocular lens; Z87.2 Personal history of diseases of the skin and subcutaneous tissue; Z98.890 Other specified postprocedural states; Z88.5 Allergy status to narcotic agent; Z88.2 Allergy status to sulfonamides; Z88.8 Allergy status to other drugs, medicaments and biological substances; Z82.49 Family history of ischemic heart disease and other diseases of the circulatory system; Z83.3 Family history of diabetes mellitus
CPT/HCPCS: 36415; 71046; 80048; 80053; 83735; 83880; 84132; 84484; 85025; 85610; 85730; 93005; 96374; 99285